=== PATIENT | female | born 1935 | race Caucasian/White ===

== ENCOUNTER 2016-12-26 13:00 | Outpatient (RCR) | payer MEDICARE, OTHER, SELFPAY ==
[2016-12-20 00:57] VITALS: BP 190/82; PULSE 58; RESP 20; TEMP 36.4
[2016-12-26 13:00] VITALS: RESP 18; TEMP 36.4
--- NOTE | 2016-12-26 13:52 | PCM.WC.HP ---
(1) Non-pressure chronic ulcer of other part of left lower leg with fat layer exposed Status: Acute Current Visit: Yes Code(s): L97.822 - NON-PRS CHRONIC ULCER OTH PRT L LOW LEG W FAT LAYER EXPOSED (2) Venous (peripheral) insufficiency Status: Chronic Current Visit: Yes Code(s): I87.2 - VENOUS INSUFFICIENCY (CHRONIC) (PERIPHERAL) (3) Peripheral vascular disease Status: Acute Current Visit: Yes Code(s): I73.9 - PERIPHERAL VASCULAR DISEASE, UNSPECIFIED (4) Type 2 diabetes mellitus with other circulatory complications Status: Acute Current Visit: Yes Code(s): E11.59 - TYPE 2 DIABETES MELLITUS WITH OTH CIRCULATORY COMPLICATIONS History of Present Illness Date of Service: 12/26/16 Chief Complaint: open sore left leg History of Wound: This 81-year-old female presents to the wound center given a history of previous ulcers of her lower extremities. She is a former patient of Dr. Gregory, and I am seeing her now since he left the wound center. 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 Vein harvesting was from the left leg. Since then she has had problems with swelling of the leg and recurring ulcers. The patient has diabetes, coronary artery disease, peripheral arterial disease, and venous insufficiency. The patient has had venous ulcers previously that were treated compression. The patient has compression stockings that are difficult for her to wear. She lives alone and she is unable to put them on easily. A blister on her anterior tibial region ruptured and she has had continued drainage from the anterior tibial ulcer. She has been having aquacel ag and loosely wrapped 3M 2-layer coban applied. Patient states her leg is stable. Has not had venous studies in over 3 years and has not had arterial studies in over 2 years. Has not seen a vascular surgeon. She does not give a history of fevers or chills, myalgias or arthralgias. She does not remember her A1c. She gives herself 3 injections of insulin daily. Past Medical History Past Medical History: Chronic Problems Venous (peripheral) insufficiency (Chronic) Diabetes type 2, controlled (Chronic) Ulcer of leg, chronic, left (Chronic) Surgical History: coronary bypass surgery, herniorrhaphy, hysterectomy, - - Bladder sling Allergies/Adverse Reactions: Allergies ibuprofen [From Motrin] Allergy (Verified 05/12/14 11:54) Other CONFUSION naproxen sodium [From Aleve] Allergy (Verified 05/12/14 11:54) Other Penicillins Allergy (Verified 05/12/14 11:54) Rash Sulfa (Sulfonamide Antibiotics) Allergy (Verified 05/12/14 11:54) Rash atorvastatin calcium [From Lipitor] Adverse Reaction (Verified 05/12/14 11:54) Other LEG ACHES Home Medications: Ambulatory Orders Medication Instructions Recorded Ferrous Fumarate [Iron] 55 mg PO DAILY 03/15/13 Lisinopril [Zestril] 40 mg PO DAILY 05/22/13 Aspirin [Aspirin, Baby] 81 mg PO DAILY@0800 05/12/14 Furosemide [Lasix] 40 mg PO DAILY PRN PRN 05/12/14 Gabapentin [Neurontin] 300 mg PO TID 05/12/14 Cholecalciferol (Vitamin D3) 1,000 unit PO DAILY 09/20/16 [Vitamin D3] Insulin Glargine,Hum.rec.anlog 14 unit SQ DAILY 09/20/16 [Toujeo Solostar] Insulin Lispro [Humalog] 4 unit SQ TID 09/20/16 Isosorbide Dinitrate 30 mg PO DAILY 09/20/16 Levothyroxine [Synthroid] 37.5 mcg PO DAILY 09/20/16 Metoprolol Tartrate 12.5 mg PO BID 09/20/16 Omeprazole [Prilosec] 20 mg PO DAILY 09/20/16 Ondansetron HCl [Zofran] 4 mg PO PRN PRN 09/20/16 Oxycodone HCl/Acetaminophen 1 each PO Q6H PRN PRN 09/20/16 [Oxycodon-Acetaminophen 7.5-325] Ropinirole HCl [Requip] 0.5 mg PO QHS 09/20/16 - Family History Maternal No pertinent history Paternal Cancer Lives: Alone Smoking Status: Never smoker Tobacco Use: Non-smoker Alcohol: Rare Drugs: None Review of Systems Constitutional: Denies: Chills, Fever, Weight Change Eyes: Denies: Pain, Vision Change HEENT: Denies: Difficulty Hearing, Difficulty Swallowing, Sinus Congestion Cardiovascular: Reports: Edema. Denies: Chest Pain, Palpitations Respiratory: Denies: Cough, Shortness of Breath Gastrointestinal: Denies: Diarrhea, Nausea, Vomiting Genitourinary: Denies: Dysuria, Hematuria Skin: Reports: Wounds - L jenkins Neurological: Denies: Numbness, Tingling Psychiatric: Denies: Anxiety, Depression Endocrine: Denies: Heat/ Cold Intolerance, Polydipsia, Polyuria Hematologic/ Lymphatic: Denies: Easy Bruising, Easy Bleeding - Physical Exam Vital Signs Temp Pulse Resp BP Pulse Ox 97.5 F 58 18 190/82 12/26/16 13:00 12/20/16 00:57 12/26/16 13:00 12/20/16 00:57 General: Alert, Oriented x3, Cooperative, No apparent distress Extremities: No Calf Tenderness, Diminished Peripheral Pulses, Edema Skin: Ulcer/ Wound - L jenkins with no erythema, no pus, no malodor, no warmth, no pain with palpation. No clinical signs of acute bacterial infection noted. See nurse's wound/edema assessment below. Wound Measurements and Assessment WC - Nurse 1 - General Ulcer Measurement Start: 12/26/16 13:00 Freq: Status: Active Activity Type Activity Date Activity User E-Sign Co-Sign Detail Recorded Client Recorded Date Recorded By Document 12/26/16 13:00 [facility] [id number] 12/26/16 13:12 [facility] 12/26/16 13:00 Wound Center Nurse 1 [Ulcer Assessment] 1. L medial jenkins -Combined with other wound No -Current Size (cm) - Length 1.1 -Current Size (cm) - Width 0.7 -Current Size (cm) - Depth 0.3 -Total Square Cm 0.77 -Photo Taken No -Epithelialization None Present -Tunneling No -Undermining/Tunneling No -Exudate Amt Small (1-33%) -Exudate Type Serosanguineous -Wound Margin Distinct, Outline Attached -Granulation Amt None Present (0 %) -Slough/Fibrin Yes -Necrosis Amt Large (67-100%) -Necrotic Tissue Type Adherent Slough -Structure Exposed N/A -Texture (Erika-wound Skin Appearance) Scarring -Moisture (Erika-wound Skin Appearance Dry/Scaly ) -Color (Erika-wound Skin Appearance) Hemosiderin Staining -Temperature (Erika-wound Skin No Abnormality Appearance) (Pt Warm) -Tenderness on Palpation (Erika-wound No Skin Appearance) -Ulcer Cleansing Rinsed/ Irrigated with Saline -Foul Odor after Cleansing No -Anesthetic Used 4% Lidocaine Solution [Edema Assessment] -Lower Limb Edema Present Yes -Left Calf (cm) 51.5 -Left Ankle (cm) 25 WC - Nurse 2 - General Ulcer CM Notes Start: 12/26/16 13:00 Freq: Status: Active Activity Type Activity Date Activity User E-Sign Co-Sign Detail Recorded Client Recorded Date Recorded By Document 12/26/16 13:40 MW [id number] 12/26/16 13:43 MW 12/26/16 13:40 Wound Center Nurse 2 [Procedure/Treatment] 1. L medial jenkins -Time 13:40 -Correct Patient Yes -Correct Side, Site, Position Yes -Correct Procedure Yes -Procedure Performed Yes -Type of Procedure Debridement -Clinical Debridement Subcutaneous -Post Debridement Size (cm) - Length 1.2 -Post Debridement Size (cm) - Width 0.7 -Post Debridement Size (cm) - Depth 0.3 -Total Square Cm 0.84 -Wound/Ulcer Outcome Not Healed -Ulcer Cleansing Rinsed/ Irrigated with Saline -Foul Odor after Cleansing No -Bioengineered Tissue No -Cetacaine [place] No -Bleeding Controlled with Pressure -Treatment Response Procedure Tolerated Well [See Physician Procedure note for Specifics] Pain Scale: 0-10 Numeric [Pain] -Is Patient Pain Free? Yes Neurological: Neuro grossly intact, Motor Exam 5/5 strength throughout, Muscle tone normal, Coordination normal, Gait narrow based and stable Psych/Mental Status: Alert and oriented to time, place, person, mood and affect - wnl Debridement Note Post-Debridement Measurements/Treatment WC - Nurse 2 - General Ulcer CM Notes Start: 12/26/16 13:00 Freq: Status: Active Activity Type Activity Date Activity User E-Sign Co-Sign Detail Recorded Client Recorded Date Recorded By Document 12/26/16 13:40 MW [id number] 12/26/16 13:43 MW 12/26/16 13:40 Wound Center Nurse 2 1. L medial jenkins -Time 13:40 -Correct Patient Yes -Correct Side, Site, Position Yes -Correct Procedure Yes -Procedure Performed Yes -Type of Procedure Debridement -Clinical Debridement Subcutaneous -Post Debridement Size (cm) - Length 1.2 -Post Debridement Size (cm) - Width 0.7 -Post Debridement Size (cm) - Depth 0.3 -Total Square Cm 0.84 -Wound/Ulcer Outcome Not Healed -Ulcer Cleansing Rinsed/ Irrigated with Saline -Foul Odor after Cleansing No -Bioengineered Tissue No -Cetacaine [place] No -Bleeding Controlled with Pressure -Treatment Response Procedure Tolerated Well Pain Scale: 0-10 Numeric Is Patient Pain Free? Yes Wound debrided: L jenkins Laterality: Left Wound Grade/Stage: full thickness VLU, lezama 1 diabetic ulcer of the left leg Type of Debridement: Excisional debridement Anesthesia Used: 4% Lidocaine Solution Depth: Down to and including healthy tissue, in the subcutaneous layer Percentage of wound debrided: 100 Instrument Used: 3mm curette Tissue Removed: fibrous slough Severity: Fat Layer Exposed Amount of bleeding with debridement: Mild Bleeding Controlled with: Pressure, Compression and gauze Patient tolerated procedure well Assessment/Plan Active Problems Non-pressure chronic ulcer of other part of left lower leg with fat layer exposed (Acute) Peripheral vascular disease (Acute) Type 2 diabetes mellitus with other circulatory complications (Acute) Venous (peripheral) insufficiency (Chronic) Assessment: see diagnoses Plan: RADIATION THERAPY TECHNOLOGIST exam. Stop 3M 2-layer coban. Start loosely wrapped unna boot. Add santyl today in clinic only. Repeat vascular testing, refer to vascular surgery as needed. Stop Aquacel silver, gauze, and loosely Wrapped 3M Coban to the left leg. Visiting nurses to change once on Sunday and she will return here on Sunday. Patient to elevate legs as much as possible above her heart, avoid idle sitting or standing, increase activity, lose weight, and take anti-inflammatories for pain. patient has severe degenerative arthritis and has inability to bend her knees. Patient cannot reach down to her legs. Recheck back in 1 week. Monitor for redness, pus, malodor, warmth, pain, increased edema as well as for N/V/F/C and call or go to the ED with these. Information entered by nursing staff reviewed.
--- NOTE | 2016-12-26 14:02 | HP.PCM_ITS ---
(1) Non-pressure chronic ulcer of other part of left lower leg with fat layer exposed Status: Acute Current Visit: Yes Code(s): L97.822 - NON-PRS CHRONIC ULCER OTH PRT L LOW LEG W FAT LAYER EXPOSED (2) Venous (peripheral) insufficiency Status: Chronic Current Visit: Yes Code(s): I87.2 - VENOUS INSUFFICIENCY ( CHRONIC) (PERIPHERAL) (3) Peripheral vascular disease Status: Acute Current Visit: Yes Code(s): I73.9 - PERIPHERAL VASCULAR DISEASE, UNSPECIFIED (4) Type 2 diabetes mellitus with other circulatory complications Status: Acute Current Visit: Yes Code(s): E11.59 - TYPE 2 DIABETES MELLITUS WITH OTH CIRCULATORY COMPLICATIONS History of Present Illness Date of Service: 12/26/16 Chief Complaint: open sore left leg History of Wound: This 81-year-old female presents to the wound center given a history of previous ulcers of her lower extremities. She is a former patient of Dr. Gregory, and I am seeing her now since he left the wound center. 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 Vein harvesting was from the left leg. Since then she has had problems with swelling of the leg and recurring ulcers. The patient has diabetes, coronary artery disease, peripheral arterial disease, and venous insufficiency. The patient has had venous ulcers previously that were treated compression. The patient has compression stockings that are difficult for her to wear. She lives alone and she is unable to put them on easily. A blister on her anterior tibial region ruptured and she has had continued drainage from the anterior tibial ulcer. She has been having aquacel ag and loosely wrapped 3M 2-layer coban applied. Patient states her leg is stable. Has not had venous studies in over 3 years and has not had arterial studies in over 2 years. Has not seen a vascular surgeon. She does not give a history of fevers or chills, myalgias or arthralgias. She does not remember her A1c. She gives herself 3 injections of insulin daily. Past Medical History Past Medical History: Chronic Problems Venous (peripheral) insufficiency (Chronic) Diabetes type 2, controlled (Chronic) Ulcer of leg, chronic, left (Chronic) Surgical History: coronary bypass surgery, herniorrhaphy, hysterectomy, - - Bladder sling Allergies/Adverse Reactions: Allergies ibuprofen [From Motrin] Allergy (Verified 05/12/14 11:54) Other CONFUSION naproxen sodium [From Aleve] Allergy (Verified 05/12/14 11:54) Other Penicillins Allergy (Verified 05/12/14 11:54) Rash Sulfa (Sulfonamide Antibiotics) Allergy (Verified 05/12/14 11:54) Rash atorvastatin calcium [From Lipitor] Adverse Reaction (Verified 05/12/14 11:54) Other LEG ACHES Home Medications: Ambulatory Orders Medication Instructions Recorded Ferrous Fumarate [Iron] 55 mg PO DAILY 03/15/13 Lisinopril [Zestril] 40 mg PO DAILY 05/22/13 Aspirin [Aspirin, Baby] 81 mg PO DAILY@0800 05/12/14 Furosemide [Lasix] 40 mg PO DAILY PRN PRN 05/12/14 Gabapentin [Neurontin] 300 mg PO TID 05/12/14 Cholecalciferol (Vitamin D3) 1,000 unit PO DAILY 09/20/16 [Vitamin D3] Insulin Glargine,Hum.rec.anlog 14 unit SQ DAILY 09/20/16 [Toujeo Solostar] Insulin Lispro [Humalog] 4 unit SQ TID 09/20/16 Isosorbide Dinitrate 30 mg PO DAILY 09/20/16 Levothyroxine [Synthroid] 37.5 mcg PO DAILY 09/20/16 Metoprolol Tartrate 12.5 mg PO BID 09/20/16 Omeprazole [Prilosec] 20 mg PO DAILY 09/20/16 Ondansetron HCl [Zofran] 4 mg PO PRN PRN 09/20/16 Oxycodone HCl/Acetaminophen 1 each PO Q6H PRN PRN 09/20/16 [Oxycodon-Acetaminophen 7.5-325] Ropinirole HCl [Requip] 0.5 mg PO QHS 09/20/16 - Family History Maternal No pertinent history Paternal Cancer Lives: Alone Smoking Status: Never smoker Tobacco Use: Non-smoker Alcohol: Rare Drugs: None Review of Systems Constitutional: Denies: Chills, Fever, Weight Change Eyes: Denies: Pain, Vision Change HEENT: Denies: Difficulty Hearing, Difficulty Swallowing, Sinus Congestion Cardiovascular: Reports: Edema. Denies: Chest Pain, Palpitations Respiratory: Denies: Cough, Shortness of Breath Gastrointestinal: Denies: Diarrhea, Nausea, Vomiting Genitourinary: Denies: Dysuria, Hematuria Skin: Reports: Wounds - L jenkins Neurological: Denies: Numbness, Tingling Psychiatric: Denies: Anxiety, Depression Endocrine: Denies: Heat/ Cold Intolerance, Polydipsia, Polyuria Hematologic/ Lymphatic: Denies: Easy Bruising, Easy Bleeding - Physical Exam Vital Signs Temp Pulse Resp BP Pulse Ox 97.5 F 58 18 190/82 12/26/16 13:00 12/20/16 00:57 12/26/16 13:00 12/20/16 00:57 General: Alert, Oriented x3, Cooperative, No apparent distress Extremities: No Calf Tenderness, Diminished Peripheral Pulses, Edema Skin: Ulcer/ Wound - L jenkins with no erythema, no pus, no malodor, no warmth, no pain with palpation. No clinical signs of acute bacterial infection noted. See nurse's wound/edema assessment below. Wound Measurements and Assessment WC - Nurse 1 - General Ulcer Measurement Start: 12/26/16 13:00 Freq: Status: Active Activity Type Activity Date Activity User E-Sign Co-Sign Detail Recorded Client Recorded Date Recorded By Document 12/26/16 13:00 [facility] [id number] 12/26/16 13:12 [facility] 12/26/16 13:00 Wound Center Nurse 1 [Ulcer Assessment] 1. L medial jenkins -Combined with other wound No -Current Size (cm) - Length 1.1 -Current Size (cm) - Width 0.7 -Current Size (cm) - Depth 0.3 -Total Square Cm 0.77 -Photo Taken No -Epithelialization None Present -Tunneling No -Undermining/Tunneling No -Exudate Amt Small (1-33%) -Exudate Type Serosanguineous -Wound Margin Distinct, Outline Attached -Granulation Amt None Present (0 %) -Slough/Fibrin Yes -Necrosis Amt Large (67-100%) -Necrotic Tissue Type Adherent Slough -Structure Exposed N/A -Texture (Erika-wound Skin Appearance) Scarring -Moisture (Erika-wound Skin Appearance Dry/Scaly ) -Color (Erika-wound Skin Appearance) Hemosiderin Staining -Temperature (Erika-wound Skin No Abnormality Appearance) (Pt Warm) -Tenderness on Palpation (Erika-wound No Skin Appearance) -Ulcer Cleansing Rinsed/ Irrigated with Saline -Foul Odor after Cleansing No -Anesthetic Used 4% Lidocaine Solution [Edema Assessment] -Lower Limb Edema Present Yes -Left Calf (cm) 51.5 -Left Ankle (cm) 25 WC - Nurse 2 - General Ulcer CM Notes Start: 12/26/16 13:00 Freq: Status: Active Activity Type Activity Date Activity User E-Sign Co-Sign Detail Recorded Client Recorded Date Recorded By Document 12/26/16 13:40 MW [id number] 12/26/16 13:43 MW 12/26/16 13:40 Wound Center Nurse 2 [Procedure/Treatment] 1. L medial jenkins -Time 13:40 -Correct Patient Yes -Correct Side, Site, Position Yes -Correct Procedure Yes -Procedure Performed Yes -Type of Procedure Debridement -Clinical Debridement Subcutaneous -Post Debridement Size (cm) - Length 1.2 -Post Debridement Size (cm) - Width 0.7 -Post Debridement Size (cm) - Depth 0.3 -Total Square Cm 0.84 -Wound/Ulcer Outcome Not Healed -Ulcer Cleansing Rinsed/ Irrigated with Saline -Foul Odor after Cleansing No -Bioengineered Tissue No -Cetacaine [place] No -Bleeding Controlled with Pressure -Treatment Response Procedure Tolerated Well [See Physician Procedure note for Specifics] Pain Scale: 0-10 Numeric [Pain] -Is Patient Pain Free? Yes Neurological: Neuro grossly intact, Motor Exam 5/5 strength throughout, Muscle tone normal, Coordination normal, Gait narrow based and stable Psych/Mental Status: Alert and oriented to time, place, person, mood and affect - wnl Debridement Note Post-Debridement Measurements/Treatment WC - Nurse 2 - General Ulcer CM Notes Start: 12/26/16 13:00 Freq: Status: Active Activity Type Activity Date Activity User E-Sign Co-Sign Detail Recorded Client Recorded Date Recorded By Document 12/26/16 13:40 MW [id number] 12/26/16 13:43 MW 12/26/16 13:40 Wound Center Nurse 2 1. L medial jenkins -Time 13:40 -Correct Patient Yes -Correct Side, Site, Position Yes -Correct Procedure Yes -Procedure Performed Yes -Type of Procedure Debridement -Clinical Debridement Subcutaneous -Post Debridement Size (cm) - Length 1.2 -Post Debridement Size (cm) - Width 0.7 -Post Debridement Size (cm) - Depth 0.3 -Total Square Cm 0.84 -Wound/Ulcer Outcome Not Healed -Ulcer Cleansing Rinsed/ Irrigated with Saline -Foul Odor after Cleansing No -Bioengineered Tissue No -Cetacaine [place] No -Bleeding Controlled with Pressure -Treatment Response Procedure Tolerated Well Pain Scale: 0-10 Numeric Is Patient Pain Free? Yes Wound debrided: L jenkins Laterality: Left Wound Grade/Stage: full thickness VLU, lezama 1 diabetic ulcer of the left leg Type of Debridement: Excisional debridement Anesthesia Used: 4% Lidocaine Solution Depth: Down to and including healthy tissue, in the subcutaneous layer Percentage of wound debrided: 100 Instrument Used: 3mm curette Tissue Removed: fibrous slough Severity: Fat Layer Exposed Amount of bleeding with debridement: Mild Bleeding Controlled with: Pressure, Compression and gauze Patient tolerated procedure well Assessment/Plan Active Problems Non-pressure chronic ulcer of other part of left lower leg with fat layer exposed (Acute) Peripheral vascular disease (Acute) Type 2 diabetes mellitus with other circulatory complications (Acute) Venous (peripheral) insufficiency (Chronic) Assessment: see diagnoses Plan: RECRUITER SPECIALIST exam. Stop 3M 2-layer coban. Start loosely wrapped unna boot. Add santyl today in clinic only. Repeat vascular testing, refer to vascular surgery as needed. Stop Aquacel silver, gauze, and loosely Wrapped 3M Coban to the left leg. Visiting nurses to change once on Sunday and she will return here on Sunday. Patient to elevate legs as much as possible above her heart, avoid idle sitting or standing, increase activity, lose weight, and take anti- inflammatories for pain. patient has severe degenerative arthritis and has inability to bend her knees. Patient cannot reach down to her legs. Recheck back in 1 week. Monitor for redness, pus, malodor, warmth, pain, increased edema as well as for N/V/F/C and call or go to the ED with these. Information entered by nursing staff reviewed.
--- NOTE | 2017-01-02 08:33 | VDLE_ITS ---
Reason For Study: Non-healing wound RIGHT LEFT CFV is compressible, spontaneous, phasic, CFV is compressible, spontaneous, phasic, competent and demonstrates normal competent, and demonstrates normal augmentation. augmentation. FV is compressible, spontaneous, phasic, FV is compressible, spontaneous, phasic, competent and demonstrates normal competent and demonstrates normal augmentation. augmentation. POP V is compressible, spontaneous, phasic, POP V is compressible, spontaneous, phasic, competent and demonstrates normal competent and demonstrates normal augmentation. augmentation. T/P Trunk is compressible. T/P Trunk is compressible. PTV is compressible. PTV is compressible. RT PerV is compressible. LT PerV is compressible. GSV absent GSV absent SSV competent. SSV competent. Procedure Exam performed portable in patient room. Technically difficult due to body habitus. [place] PER V not visualized. PTV visualized distally only. A preliminary report was called and/or faxed to [facility]. Interpretation Summary Deep veins of the lower extremities are bilaterally patent and compressible segmentally. There is no evidence of deep vein thrombosis on either side. Valvular competence appears intact within the proximal deep venous systems bilaterally. Great saphenous veins are absent bilaterally. Small saphenous veins are patent and competent bilaterally. Ordering Physician: Ez Meza Referring Physician: Vikram Hernandez M.D. Performed By: Lizz Mcmahon RVT
[2017-01-02 13:37] VITALS: BP 159/85; PULSE 64; RESP 20; TEMP 36.3
--- NOTE | 2017-01-02 14:58 | PCM.WC.PN ---
(1) Non-pressure chronic ulcer of other part of left lower leg with fat layer exposed Status: Acute Current Visit: Yes Code(s): L97.822 - NON-PRS CHRONIC ULCER OTH PRT L LOW LEG W FAT LAYER EXPOSED (2) Venous (peripheral) insufficiency Status: Chronic Current Visit: Yes Code(s): I87.2 - VENOUS INSUFFICIENCY (CHRONIC) (PERIPHERAL) (3) Peripheral vascular disease Status: Acute Current Visit: Yes Code(s): I73.9 - PERIPHERAL VASCULAR DISEASE, UNSPECIFIED (4) Type 2 diabetes mellitus with other circulatory complications Status: Acute Current Visit: Yes Code(s): E11.59 - TYPE 2 DIABETES MELLITUS WITH OTH CIRCULATORY COMPLICATIONS Type of Wound Date of Service: 01/02/17 Chief Complaint: open sore left leg History of Wound: This 81-year-old female presents to the wound center given a history of previous ulcers of her lower extremities. She is a former patient of Dr. Gregory, and I am seeing her now since he left the wound center. 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 Vein harvesting was from the left leg. Since then she has had problems with swelling of the leg and recurring ulcers. The patient has diabetes, coronary artery disease, peripheral arterial disease, and venous insufficiency. The patient has had venous ulcers previously that were treated compression. The patient has compression stockings that are difficult for her to wear. She lives alone and she is unable to put them on easily. A blister on her anterior tibial region ruptured and she has had continued drainage from the anterior tibial ulcer. She has been having aquacel ag and loosely wrapped 3M 2-layer coban applied. Patient states her leg is stable. Has not had venous studies in over 3 years and has not had arterial studies in over 2 years. Has not seen a vascular surgeon. She does not give a history of fevers or chills, myalgias or arthralgias. She does not remember her A1c. She gives herself 3 injections of insulin daily. 01/02--Did not tolerate unna boot--caused itching, switched back to 3M coban wrap loosely wrapped. ALEXIA done--0.73 on the L. Pt has lymphedema. Venous duplex reveals no reflux--but has had vein harvested for bypass surgery in the past. Denies N/V/F/C. Progress of Wound: patient presents for a recheck of her anterior tibial ulcer. Compression is through loosely wrapped 3M Coban. She had no adverse effects. Did not tolerate unna boot, and was switched back to a 3M wrap. Visiting nurses have now been coming to her home on a every other day to change dressings and compression. - Physical Exam Vital Signs Temp Pulse Resp BP Pulse Ox 97.3 F 64 20 159/85 01/02/17 13:37 01/02/17 13:37 01/02/17 13:37 01/02/17 13:37 General: Alert, Oriented x3, Cooperative, No apparent distress Extremities: Diminished Peripheral Pulses, Edema Skin: Ulcer/ Wound - L jenkins with no surrounding erythema, no calor, no TTP of wound or romy-wound area, no malodor, no pus. No clinical signs of acute bacterial infection noted. See wound/edema assessment below. Wound Measurements and Assessment WC - Nurse 1 - General Ulcer Measurement Start: 12/26/16 13:00 Freq: Status: Active Activity Type Activity Date Activity User E-Sign Co-Sign Detail Recorded Client Recorded Date Recorded By Document 01/02/17 13:37 [facility] [id number] 01/02/17 13:42 [facility] 01/02/17 13:37 Wound Center Nurse 1 [Ulcer Assessment] 1. L medial jenkins -Combined with other wound No -Current Size (cm) - Length 2.5 -Current Size (cm) - Width 1.5 -Current Size (cm) - Depth 0.2 -Total Square Cm 3.75 -Photo Taken No -Epithelialization None Present -Tunneling No -Undermining/Tunneling No -Exudate Amt Medium (34-66%) -Exudate Type Yellow/Green -Wound Margin Distinct, Outline Attached -Granulation Amt None Present (0 %) -Slough/Fibrin Yes -Necrosis Amt Large (67-100%) -Necrotic Tissue Type Adherent Slough -Structure Exposed N/A -Texture (Romy-wound Skin Appearance) Scarring -Moisture (Romy-wound Skin Appearance Maceration ) -Color (Romy-wound Skin Appearance) Hemosiderin Staining -Temperature (Romy-wound Skin No Abnormality Appearance) (Pt Warm) -Tenderness on Palpation (Romy-wound No Skin Appearance) -Ulcer Cleansing Rinsed/ Irrigated with Saline -Foul Odor after Cleansing No -Anesthetic Used 4% Lidocaine Solution [Edema Assessment] -Lower Limb Edema Present Yes -Left Calf (cm) 47 -Left Ankle (cm) 25.5 WC - Nurse 2 - General Ulcer CM Notes Start: 12/26/16 13:00 Freq: Status: Active Activity Type Activity Date Activity User E-Sign Co-Sign Detail Recorded Client Recorded Date Recorded By Document 01/02/17 14:23 MW [id number] 01/02/17 14:30 MW 01/02/17 14:23 Wound Center Nurse 2 [Procedure/Treatment] 1. L medial jenkins -Time 14:23 -Correct Patient Yes -Correct Side, Site, Position Yes -Correct Procedure Yes -Procedure Performed Yes -Type of Procedure Debridement -Clinical Debridement Subcutaneous -Post Debridement Size (cm) - Length 2.6 -Post Debridement Size (cm) - Width 1.5 -Post Debridement Size (cm) - Depth 0.2 -Total Square Cm 3.90 -Wound/Ulcer Outcome Not Healed -Ulcer Cleansing Rinsed/ Irrigated with Saline -Foul Odor after Cleansing No -Bioengineered Tissue No -Cetacaine [place] No -Bleeding Controlled with Pressure -Treatment Response Procedure Tolerated Well [See Physician Procedure note for Specifics] Pain Scale: 0-10 Numeric [Pain] -Is Patient Pain Free? Yes Debridement Note Post-Debridement Measurements/Treatment WC - Nurse 2 - General Ulcer CM Notes Start: 12/26/16 13:00 Freq: Status: Active Activity Type Activity Date Activity User E-Sign Co-Sign Detail Recorded Client Recorded Date Recorded By Document 01/02/17 14:23 MW [id number] 01/02/17 14:30 MW 01/02/17 14:23 Wound Center Nurse 2 1. L medial jenkins -Time 14:23 -Correct Patient Yes -Correct Side, Site, Position Yes -Correct Procedure Yes -Procedure Performed Yes -Type of Procedure Debridement -Clinical Debridement Subcutaneous -Post Debridement Size (cm) - Length 2.6 -Post Debridement Size (cm) - Width 1.5 -Post Debridement Size (cm) - Depth 0.2 -Total Square Cm 3.90 -Wound/Ulcer Outcome Not Healed -Ulcer Cleansing Rinsed/ Irrigated with Saline -Foul Odor after Cleansing No -Bioengineered Tissue No -Cetacaine [place] No -Bleeding Controlled with Pressure -Treatment Response Procedure Tolerated Well Pain Scale: 0-10 Numeric Is Patient Pain Free? Yes Wound debrided: L jenkins Laterality: Left Wound Grade/Stage: full thickness Type of Debridement: Excisional debridement Anesthesia Used: 4% Lidocaine Solution Depth: Down to and including healthy tissue, in the subcutaneous layer Percentage of wound debrided: 100 Instrument Used: 3mm curette Tissue Removed: fibrous slough Severity: Fat Layer Exposed Amount of bleeding with debridement: Mild Bleeding Controlled with: Pressure, Compression and gauze Patient tolerated procedure well Assessment/Plan Active Problems Non-pressure chronic ulcer of other part of left lower leg with fat layer exposed (Acute) Peripheral vascular disease (Acute) Type 2 diabetes mellitus with other circulatory complications (Acute) Venous (peripheral) insufficiency (Chronic) Assessment: see diagnoses Plan: SQ/excisional debridment L leg ulcer as above. Add santyl today in clinic only. Referral to Dr. Granda given lymphedema with dimished arterial blood flow. Stop 3M coban, start surepress. Use fibracol plus. Patient to elevate legs as much as possible above her heart, avoid idle sitting or standing, increase activity, lose weight, and take anti-inflammatories for pain. patient has severe degenerative arthritis and has inability to bend her knees. Patient cannot reach down to her legs. Recheck back in 1 week. Monitor for redness, pus, malodor, warmth, pain, increased edema as well as for N/V/F/C and call or go to the ED with these. Information entered by nursing staff reviewed.
--- NOTE | 2017-01-02 15:03 | PN.PCM_ITS ---
(1) Non-pressure chronic ulcer of other part of left lower leg with fat layer exposed Status: Acute Current Visit: Yes Code(s): L97.822 - NON-PRS CHRONIC ULCER OTH PRT L LOW LEG W FAT LAYER EXPOSED (2) Venous (peripheral) insufficiency Status: Chronic Current Visit: Yes Code(s): I87.2 - VENOUS INSUFFICIENCY ( CHRONIC) (PERIPHERAL) (3) Peripheral vascular disease Status: Acute Current Visit: Yes Code(s): I73.9 - PERIPHERAL VASCULAR DISEASE, UNSPECIFIED (4) Type 2 diabetes mellitus with other circulatory complications Status: Acute Current Visit: Yes Code(s): E11.59 - TYPE 2 DIABETES MELLITUS WITH OTH CIRCULATORY COMPLICATIONS Type of Wound Date of Service: 01/02/17 Chief Complaint: open sore left leg History of Wound: This 81-year-old female presents to the wound center given a history of previous ulcers of her lower extremities. She is a former patient of Dr. Gregory, and I am seeing her now since he left the wound center. 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 Vein harvesting was from the left leg. Since then she has had problems with swelling of the leg and recurring ulcers. The patient has diabetes, coronary artery disease, peripheral arterial disease, and venous insufficiency. The patient has had venous ulcers previously that were treated compression. The patient has compression stockings that are difficult for her to wear. She lives alone and she is unable to put them on easily. A blister on her anterior tibial region ruptured and she has had continued drainage from the anterior tibial ulcer. She has been having aquacel ag and loosely wrapped 3M 2-layer coban applied. Patient states her leg is stable. Has not had venous studies in over 3 years and has not had arterial studies in over 2 years. Has not seen a vascular surgeon. She does not give a history of fevers or chills, myalgias or arthralgias. She does not remember her A1c. She gives herself 3 injections of insulin daily. 01/02--Did not tolerate unna boot-- caused itching, switched back to 3M coban wrap loosely wrapped. ALEXIA done--0.73 on the L. Pt has lymphedema. Venous duplex reveals no reflux--but has had vein harvested for bypass surgery in the past. Denies N/V/F/C. Progress of Wound: patient presents for a recheck of her anterior tibial ulcer. Compression is through loosely wrapped 3M Coban. She had no adverse effects. Did not tolerate unna boot, and was switched back to a 3M wrap. Visiting nurses have now been coming to her home on a every other day to change dressings and compression. - Physical Exam Vital Signs Temp Pulse Resp BP Pulse Ox 97.3 F 64 20 159/85 01/02/17 13:37 01/02/17 13:37 01/02/17 13:37 01/02/17 13:37 General: Alert, Oriented x3, Cooperative, No apparent distress Extremities: Diminished Peripheral Pulses, Edema Skin: Ulcer/ Wound - L jenkins with no surrounding erythema, no calor, no TTP of wound or romy-wound area, no malodor, no pus. No clinical signs of acute bacterial infection noted. See wound/edema assessment below. Wound Measurements and Assessment WC - Nurse 1 - General Ulcer Measurement Start: 12/26/16 13:00 Freq: Status: Active Activity Type Activity Date Activity User E-Sign Co-Sign Detail Recorded Client Recorded Date Recorded By Document 01/02/17 13:37 [facility] [id number] 01/02/17 13:42 [facility] 01/02/17 13:37 Wound Center Nurse 1 [Ulcer Assessment] 1. L medial jenkins -Combined with other wound No -Current Size (cm) - Length 2.5 -Current Size (cm) - Width 1.5 -Current Size (cm) - Depth 0.2 -Total Square Cm 3.75 -Photo Taken No -Epithelialization None Present -Tunneling No -Undermining/Tunneling No -Exudate Amt Medium (34-66%) -Exudate Type Yellow/Green -Wound Margin Distinct, Outline Attached -Granulation Amt None Present (0 %) -Slough/Fibrin Yes -Necrosis Amt Large (67-100%) -Necrotic Tissue Type Adherent Slough -Structure Exposed N/A -Texture (Romy-wound Skin Appearance) Scarring -Moisture (Romy-wound Skin Appearance Maceration ) -Color (Romy-wound Skin Appearance) Hemosiderin Staining -Temperature (Romy-wound Skin No Abnormality Appearance) (Pt Warm) -Tenderness on Palpation (Romy-wound No Skin Appearance) -Ulcer Cleansing Rinsed/ Irrigated with Saline -Foul Odor after Cleansing No -Anesthetic Used 4% Lidocaine Solution [Edema Assessment] -Lower Limb Edema Present Yes -Left Calf (cm) 47 -Left Ankle (cm) 25.5 WC - Nurse 2 - General Ulcer CM Notes Start: 12/26/16 13:00 Freq: Status: Active Activity Type Activity Date Activity User E-Sign Co-Sign Detail Recorded Client Recorded Date Recorded By Document 01/02/17 14:23 MW [id number] 01/02/17 14:30 MW 01/02/17 14:23 Wound Center Nurse 2 [Procedure/Treatment] 1. L medial jenkins -Time 14:23 -Correct Patient Yes -Correct Side, Site, Position Yes -Correct Procedure Yes -Procedure Performed Yes -Type of Procedure Debridement -Clinical Debridement Subcutaneous -Post Debridement Size (cm) - Length 2.6 -Post Debridement Size (cm) - Width 1.5 -Post Debridement Size (cm) - Depth 0.2 -Total Square Cm 3.90 -Wound/Ulcer Outcome Not Healed -Ulcer Cleansing Rinsed/ Irrigated with Saline -Foul Odor after Cleansing No -Bioengineered Tissue No -Cetacaine [place] No -Bleeding Controlled with Pressure -Treatment Response Procedure Tolerated Well [See Physician Procedure note for Specifics] Pain Scale: 0-10 Numeric [Pain] -Is Patient Pain Free? Yes Debridement Note Post-Debridement Measurements/Treatment WC - Nurse 2 - General Ulcer CM Notes Start: 12/26/16 13:00 Freq: Status: Active Activity Type Activity Date Activity User E-Sign Co-Sign Detail Recorded Client Recorded Date Recorded By Document 01/02/17 14:23 MW [id number] 01/02/17 14:30 MW 01/02/17 14:23 Wound Center Nurse 2 1. L medial jenkins -Time 14:23 -Correct Patient Yes -Correct Side, Site, Position Yes -Correct Procedure Yes -Procedure Performed Yes -Type of Procedure Debridement -Clinical Debridement Subcutaneous -Post Debridement Size (cm) - Length 2.6 -Post Debridement Size (cm) - Width 1.5 -Post Debridement Size (cm) - Depth 0.2 -Total Square Cm 3.90 -Wound/Ulcer Outcome Not Healed -Ulcer Cleansing Rinsed/ Irrigated with Saline -Foul Odor after Cleansing No -Bioengineered Tissue No -Cetacaine [place] No -Bleeding Controlled with Pressure -Treatment Response Procedure Tolerated Well Pain Scale: 0-10 Numeric Is Patient Pain Free? Yes Wound debrided: L jenkins Laterality: Left Wound Grade/Stage: full thickness Type of Debridement: Excisional debridement Anesthesia Used: 4% Lidocaine Solution Depth: Down to and including healthy tissue, in the subcutaneous layer Percentage of wound debrided: 100 Instrument Used: 3mm curette Tissue Removed: fibrous slough Severity: Fat Layer Exposed Amount of bleeding with debridement: Mild Bleeding Controlled with: Pressure, Compression and gauze Patient tolerated procedure well Assessment/Plan Active Problems Non-pressure chronic ulcer of other part of left lower leg with fat layer exposed (Acute) Peripheral vascular disease (Acute) Type 2 diabetes mellitus with other circulatory complications (Acute) Venous (peripheral) insufficiency (Chronic) Assessment: see diagnoses Plan: SQ/excisional debridment L leg ulcer as above. Add santyl today in clinic only. Referral to Dr. Granda given lymphedema with dimished arterial blood flow. Stop 3M coban, start surepress. Use fibracol plus. Patient to elevate legs as much as possible above her heart, avoid idle sitting or standing , increase activity, lose weight, and take anti-inflammatories for pain. patient has severe degenerative arthritis and has inability to bend her knees. Patient cannot reach down to her legs. Recheck back in 1 week. Monitor for redness, pus, malodor, warmth, pain, increased edema as well as for N/V/F/C and call or go to the ED with these. Information entered by nursing staff reviewed.
--- NOTE | 2017-01-03 18:10 | LEAS ---
Arterial Study - Arterial Study Arterial Study: This is a 81-year-old female with a history of diabetes mellitus, coronary artery disease, and peripheral arterial occlusive disease. She presents with chronic nonhealing wounds to the lower extremities. With a history of peripheral arterial occlusive disease, she was brought to the noninvasive vascular laboratory at this time for the purpose of bilateral noninvasive lower extremity arterial assessment. Doppler signal assessment was used to evaluate the pulses at ankle level bilaterally. The right posterior tibial pulse was monophasic. The right dorsalis pedis pulse was biphasic. The left posterior tibial pulse was monophasic. The left dorsalis pedis pulse was biphasic. Segmental limb pressures were obtained bilaterally. The right ankle pressure, as determined by posterior tibial pulse, was measured at 108 mmHg. The right ankle pressure, as determined by dorsalis pedis pulse, was measured at 157 mmHg. The right digital pressure was measured at 87 mmHg. The left ankle pressure, as determined by posterior tibial pulse, was measured at 149 mmHg. The left ankle pressure, as determined by dorsalis pedis pulse, was measured at 142 mmHg. The left digital pressure was measured at 60 mmHg. Pulse-volume recordings were obtained bilaterally and segmentally. Waveform amplitudes appeared to be diminished distally. Resting ankle-brachial indices were calculated bilaterally. The resting right ankle-brachial index was calculated to be 0.77. The resting left ankle-brachial index was calculated to be 0.73. Digital-brachial indices were calculated bilaterally. The right digital-brachial index was calculated to be 0.43. The left digital-brachial index was calculated to be 0.29. Impression: Based upon the findings of this resting noninvasive lower extremity arterial study, there is evidence of moderate to severe arterial occlusive disease in the lower extremities bilaterally. Monophasic and biphasic waveforms are noted at ankle level bilaterally. Resting ankle-brachial indices are moderately diminished bilaterally. The right digital-brachial index is moderately diminished. The left digital-brachial index is severely diminished. Findings suggest moderate arterial occlusive disease in the right lower extremity, with moderate impairment of arterial flow at ankle level on the left, and additional distal, small-vessel arterial occlusive disease in the left lower extremity, resulting in severe impairment of arterial flow at digital level in the left lower extremity.
--- NOTE | 2017-01-03 18:14 | LEAS_ITS ---
Arterial Study - Arterial Study Arterial Study: This is a 81-year-old female with a history of diabetes mellitus, coronary artery disease, and peripheral arterial occlusive disease. She presents with chronic nonhealing wounds to the lower extremities. With a history of peripheral arterial occlusive disease, she was brought to the noninvasive vascular laboratory at this time for the purpose of bilateral noninvasive lower extremity arterial assessment. Doppler signal assessment was used to evaluate the pulses at ankle level bilaterally. The right posterior tibial pulse was monophasic. The right dorsalis pedis pulse was biphasic. The left posterior tibial pulse was monophasic. The left dorsalis pedis pulse was biphasic. Segmental limb pressures were obtained bilaterally. The right ankle pressure, as determined by posterior tibial pulse, was measured at 108 mmHg. The right ankle pressure, as determined by dorsalis pedis pulse, was measured at 157 mmHg. The right digital pressure was measured at 87 mmHg. The left ankle pressure, as determined by posterior tibial pulse, was measured at 149 mmHg. The left ankle pressure, as determined by dorsalis pedis pulse, was measured at 142 mmHg. The left digital pressure was measured at 60 mmHg. Pulse-volume recordings were obtained bilaterally and segmentally. Waveform amplitudes appeared to be diminished distally. Resting ankle-brachial indices were calculated bilaterally. The resting right ankle-brachial index was calculated to be 0.77. The resting left ankle- brachial index was calculated to be 0.73. Digital-brachial indices were calculated bilaterally. The right digital- brachial index was calculated to be 0.43. The left digital-brachial index was calculated to be 0.29. Impression: Based upon the findings of this resting noninvasive lower extremity arterial study, there is evidence of moderate to severe arterial occlusive disease in the lower extremities bilaterally. Monophasic and biphasic waveforms are noted at ankle level bilaterally. Resting ankle-brachial indices are moderately diminished bilaterally. The right digital-brachial index is moderately diminished. The left digital-brachial index is severely diminished. Findings suggest moderate arterial occlusive disease in the right lower extremity, with moderate impairment of arterial flow at ankle level on the left , and additional distal, small-vessel arterial occlusive disease in the left lower extremity, resulting in severe impairment of arterial flow at digital level in the left lower extremity.
[2017-01-16 12:32] VITALS: RESP 16; TEMP 36.6
--- NOTE | 2017-01-16 14:49 | PN.PCM_ITS ---
(1) Non-pressure chronic ulcer of other part of left lower leg with fat layer exposed Status: Acute Current Visit: Yes Code(s): L97.822 - NON-PRS CHRONIC ULCER OTH PRT L LOW LEG W FAT LAYER EXPOSED (2) Venous (peripheral) insufficiency Status: Chronic Current Visit: Yes Code(s): I87.2 - VENOUS INSUFFICIENCY ( CHRONIC) (PERIPHERAL) (3) Peripheral vascular disease Status: Acute Current Visit: Yes Code(s): I73.9 - PERIPHERAL VASCULAR DISEASE, UNSPECIFIED (4) Type 2 diabetes mellitus with other circulatory complications Status: Acute Current Visit: Yes Code(s): E11.59 - TYPE 2 DIABETES MELLITUS WITH OTH CIRCULATORY COMPLICATIONS (5) Edema extremities Status: Acute Current Visit: Yes Code(s): R60.0 - LOCALIZED EDEMA (6) Pain in left lower leg Status: Acute Current Visit: Yes Code(s): M79.662 - PAIN IN LEFT LOWER LEG Type of Wound Date of Service: 01/16/17 Chief Complaint: open sore left leg History of Wound: This 81-year-old female presents to the wound center given a history of previous ulcers of her lower extremities. She is a former patient of Dr. Conway's, and I am seeing her now since he left the wound center. 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 Vein harvesting was from the left leg. Since then she has had problems with swelling of the leg and recurring ulcers. The patient has diabetes, coronary artery disease, peripheral arterial disease, and venous insufficiency. The patient has had venous ulcers previously that were treated compression. The patient has compression stockings that are difficult for her to wear. She lives alone and she is unable to put them on easily. A blister on her anterior tibial region ruptured and she has had continued drainage from the anterior tibial ulcer. She has been having aquacel ag and loosely wrapped 3M 2-layer coban applied. Patient states her leg is stable. Has not had venous studies in over 3 years and has not had arterial studies in over 2 years. Has not seen a vascular surgeon. She does not give a history of fevers or chills, myalgias or arthralgias. She does not remember her A1c. She gives herself 3 injections of insulin daily. 01/02--Did not tolerate unna boot-- caused itching, switched back to 3M coban wrap loosely wrapped. ALEXIA done--0.73 on the L. Pt has lymphedema. Venous duplex reveals no reflux--but has had vein harvested for bypass surgery in the past. Denies N/V/F/C. 01/16--Pt complains of L calf pain today. Has appt to see Dr. Granda tomorrow. Will send her to get venous duplex given edema, pain L leg. Has had fibracol plus applied every other day to the L leg wounds. Has superficial areas draining clear fluid from L calf. Progress of Wound: patient presents for a recheck of her anterior tibial ulcer. Compression is with Surepress. She had no adverse effects. Did not tolerate unna boot. Visiting nurses have now been coming to her home on a every other day to change dressings and compression. - Physical Exam Vital Signs Temp Pulse Resp BP Pulse Ox 98 F 64 16 159/85 01/16/17 12:32 01/02/17 13:37 01/16/17 12:32 01/02/17 13:37 General: Alert, Oriented x3, Cooperative, No apparent distress Extremities: Edema, Tenderness - L calf Skin: Ulcer/ Wound - L jenkins and L calf with no erythema, no TTP, no calor, no malodor, no pus, no clinical signs of acute bacterial infection noted. See nurse's wound assessment. Wound Measurements and Assessment WC - Nurse 1 - General Ulcer Measurement Start: 12/26/16 13:00 Freq: Status: Active Activity Type Activity Date Activity User E-Sign Co-Sign Detail Recorded Client Recorded Date Recorded By Document 01/16/17 12:32 [facility] [id number] 01/16/17 12:51 [facility] 01/16/17 12:32 Wound Center Nurse 1 [Ulcer Assessment] #4- LT CALF CLUSTER -Combined with other wound No -Current Size (cm) - Length 8.8 -Current Size (cm) - Width 7.8 -Current Size (cm) - Depth 0.1 -Total Square Cm 68.64 -Date of Last Picture (Recall this 01/16/17 field) -Photo Taken Yes -Epithelialization None Present -Tunneling No -Undermining/Tunneling No -Exudate Amt Large (67-100%) -Exudate Type Serosanguineous -Wound Margin Distinct, Outline Attached -Granulation Amt Medium (34-66%) -Granulation Quality Red -Slough/Fibrin Yes -Necrosis Amt Medium (34-66%) -Necrotic Tissue Type Adherent Slough -Structure Exposed None/Limited to Skin Breakdown -Texture (Erika-wound Skin Appearance) Scarring -Moisture (Erika-wound Skin Appearance Maceration ) -Color (Erika-wound Skin Appearance) Hemosiderin Staining -Temperature (Erika-wound Skin No Abnormality Appearance) (Pt Warm) -Tenderness on Palpation (Erika-wound Yes Skin Appearance) -Ulcer Cleansing Rinsed/ Irrigated with Saline -Foul Odor after Cleansing No -Anesthetic Used 4% Lidocaine Solution 1. L medial jenkins -Combined with other wound No -Current Size (cm) - Length 2.6 -Current Size (cm) - Width 1.8 -Current Size (cm) - Depth 0.4 -Total Square Cm 4.68 -Date of Last Picture (Recall this 01/16/17 field) -Photo Taken Yes -Epithelialization None Present -Tunneling No -Undermining/Tunneling No -Exudate Amt Large (67-100%) -Exudate Type Serosanguineous -Wound Margin Distinct, Outline Attached -Granulation Amt None Present (0 %) -Slough/Fibrin Yes -Necrosis Amt Large (67-100%) -Necrotic Tissue Type Adherent Slough -Structure Exposed N/A -Texture (Erika-wound Skin Appearance) Scarring -Moisture (Erika-wound Skin Appearance Maceration ) -Color (Erika-wound Skin Appearance) Hemosiderin Staining -Temperature (Erika-wound Skin No Abnormality Appearance) (Pt Warm) -Tenderness on Palpation (Erika-wound Yes Skin Appearance) -Ulcer Cleansing Rinsed/ Irrigated with Saline -Foul Odor after Cleansing No -Anesthetic Used 5% Lidocaine Gel [Edema Assessment] -Lower Limb Edema Present Yes -Left Calf (cm) 50.5 -Left Ankle (cm) 25.7 WC - Nurse 2 - General Ulcer CM Notes Start: 12/26/16 13:00 Freq: Status: Active Activity Type Activity Date Activity User E-Sign Co-Sign Detail Recorded Client Recorded Date Recorded By Document 01/16/17 13:18 MW [id number] 01/16/17 13:29 MW 01/16/17 13:18 Wound Center Nurse 2 [Procedure/Treatment] #4- LT CALF CLUSTER -Time 13:19 -Correct Patient Yes -Correct Side, Site, Position Yes -Correct Procedure Yes -Procedure Performed No -Post Debridement Size (cm) - Length 8.8 -Post Debridement Size (cm) - Width 7.8 -Post Debridement Size (cm) - Depth 0.1 -Total Square Cm 68.64 -Wound/Ulcer Outcome Not Healed -Ulcer Cleansing Rinsed/ Irrigated with Saline -Foul Odor after Cleansing No -Bioengineered Tissue No -Cetacaine [place] No -Bleeding Controlled with Pressure -Treatment Response Procedure Tolerated Well 1. L medial jenkins -Time 13:19 -Correct Patient Yes -Correct Side, Site, Position Yes -Correct Procedure Yes -Procedure Performed Yes -Type of Procedure Debridement -Clinical Debridement Subcutaneous -Post Debridement Size (cm) - Length 2.7 -Post Debridement Size (cm) - Width 1.9 -Post Debridement Size (cm) - Depth 0.2 -Total Square Cm 5.13 -Wound/Ulcer Outcome Not Healed -Ulcer Cleansing Rinsed/ Irrigated with Saline -Foul Odor after Cleansing No -Bioengineered Tissue No -Cetacaine [place] No -Bleeding Controlled with Pressure -Treatment Response Procedure Tolerated Well [See Physician Procedure note for Specifics] Pain Scale: 0-10 Numeric [Pain] -Is Patient Pain Free? Yes Debridement Note Post-Debridement Measurements/Treatment WC - Nurse 2 - General Ulcer CM Notes Start: 12/26/16 13:00 Freq: Status: Active Activity Type Activity Date Activity User E-Sign Co-Sign Detail Recorded Client Recorded Date Recorded By Document 01/16/17 13:18 MW [id number] 01/16/17 13:29 MW 01/16/17 13:18 Wound Center Nurse 2 #4- LT CALF CLUSTER -Time 13:19 -Correct Patient Yes -Correct Side, Site, Position Yes -Correct Procedure Yes -Procedure Performed No -Post Debridement Size (cm) - Length 8.8 -Post Debridement Size (cm) - Width 7.8 -Post Debridement Size (cm) - Depth 0.1 -Total Square Cm 68.64 -Wound/Ulcer Outcome Not Healed -Ulcer Cleansing Rinsed/ Irrigated with Saline -Foul Odor after Cleansing No -Bioengineered Tissue No -Cetacaine [place] No -Bleeding Controlled with Pressure -Treatment Response Procedure Tolerated Well 1. L medial jenkins -Time 13:19 -Correct Patient Yes -Correct Side, Site, Position Yes -Correct Procedure Yes -Procedure Performed Yes -Type of Procedure Debridement -Clinical Debridement Subcutaneous -Post Debridement Size (cm) - Length 2.7 -Post Debridement Size (cm) - Width 1.9 -Post Debridement Size (cm) - Depth 0.2 -Total Square Cm 5.13 -Wound/Ulcer Outcome Not Healed -Ulcer Cleansing Rinsed/ Irrigated with Saline -Foul Odor after Cleansing No -Bioengineered Tissue No -Cetacaine [place] No -Bleeding Controlled with Pressure -Treatment Response Procedure Tolerated Well Pain Scale: 0-10 Numeric Is Patient Pain Free? Yes Wound debrided: L jenkins Laterality: Left Wound Grade/Stage: full thickness Type of Debridement: Excisional debridement Anesthesia Used: 4% Lidocaine Solution Depth: Down to and including healthy tissue, in the subcutaneous layer Percentage of wound debrided: 100 Instrument Used: 5mm curette Tissue Removed: fibrous slough Severity: Fat Layer Exposed Amount of bleeding with debridement: Mild Bleeding Controlled with: Pressure, Compression and gauze Patient tolerated procedure well Assessment/Plan Active Problems Edema extremities (Acute) Non-pressure chronic ulcer of other part of left lower leg with fat layer exposed (Acute) Pain in left lower leg (Acute) Peripheral vascular disease (Acute) Type 2 diabetes mellitus with other circulatory complications (Acute) Venous (peripheral) insufficiency (Chronic) Assessment: see diagnoses Plan: SQ/excisional debridment L leg ulcer as above. Referral to Dr. Granda given lymphedema with dimished arterial blood flow. Seeing him tomorrow. Go to the hospital for STAT venous duplex to assess for DVT LLE given edema, pain L calf. Restart 3M coban. Use fibracol plus. Apply to new superficial areas draining L calf today. Patient to elevate legs as much as possible above her heart, avoid idle sitting or standing, increase activity, lose weight, and take anti-inflammatories for pain. Pt states she can only take aspirin. Patient has severe degenerative arthritis and has inability to bend her knees. Patient cannot reach down to her legs. Recheck back in 1 week. Monitor for redness, pus, malodor, warmth, pain, increased edema as well as for N/V/F/C and call or go to the ED with these. Information entered by nursing staff reviewed.
== END 2017-01-18 23:59 ==
LOC: WC 01-02 09:00
PROVIDERS: Family Provider Family Medicine; PCP Family Medicine; Visit Provider Podiatrist Foot & Ankle Surgery
DX: E11.622 Type 2 diabetes mellitus with other skin ulcer (principal); L97.822 Non-pressure chronic ulcer of other part of left lower leg with fat layer exposed; I87.2 Venous insufficiency (chronic) (peripheral); E11.59 Type 2 diabetes mellitus with other circulatory complications; Z95.1 Presence of aortocoronary bypass graft; I25.10 Atherosclerotic heart disease of native coronary artery without angina pectoris; M19.90 Unspecified osteoarthritis, unspecified site; I89.0 Lymphedema, not elsewhere classified; I77.9 Disorder of arteries and arterioles, unspecified; R09.89 Other specified symptoms and signs involving the circulatory and respiratory systems; R60.0 Localized edema; M79.662 Pain in left lower leg
CPT/HCPCS: 11042; 29580; 29581; 93923; 93970; 93971

== ENCOUNTER 2017-01-30 15:00 | Outpatient (RCR) | payer MEDICARE, OTHER, SELFPAY ==
[2017-01-21 00:38] VITALS: BP 159/85; PULSE 64; RESP 16; TEMP 36.6
[2017-01-23 14:22] VITALS: BP 146/76; PULSE 98; RESP 16; TEMP 37
--- NOTE | 2017-01-23 16:02 | PCM.WC.PN ---
(1) Non-pressure chronic ulcer of other part of left lower leg with fat layer exposed Status: Acute Current Visit: Yes Code(s): L97.822 - Non-pressure chronic ulcer of other part of left lower leg with fat layer exposed (2) Lymphedema Status: Acute Current Visit: Yes Code(s): I89.0 - Lymphedema, not elsewhere classified (3) Type 2 diabetes mellitus with other circulatory complications Status: Acute Current Visit: No Code(s): E11.59 - Type 2 diabetes mellitus with other circulatory complications (4) Type 2 diabetes mellitus with diabetic peripheral angiopathy without gangrene Status: Acute Current Visit: Yes Code(s): E11.51 - Type 2 diabetes mellitus with diabetic peripheral angiopathy without gangrene Type of Wound Date of Service: 01/23/17 Chief Complaint: open sore left leg History of Wound: This 81-year-old female presents to the wound center given a history of previous ulcers of her lower extremities. She is a former patient of Dr. Conway's, and I am seeing her now since he left the wound center. 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 Vein harvesting was from the left leg. Since then she has had problems with swelling of the leg and recurring ulcers. The patient has diabetes, coronary artery disease, peripheral arterial disease, and venous insufficiency. The patient has had venous ulcers previously that were treated compression. The patient has compression stockings that are difficult for her to wear. She lives alone and she is unable to put them on easily. A blister on her anterior tibial region ruptured and she has had continued drainage from the anterior tibial ulcer. She has been having aquacel ag and loosely wrapped 3M 2-layer coban applied. Patient states her leg is stable. Has not had venous studies in over 3 years and has not had arterial studies in over 2 years. Has not seen a vascular surgeon. She does not give a history of fevers or chills, myalgias or arthralgias. She does not remember her A1c. She gives herself 3 injections of insulin daily. 01/02--Did not tolerate unna boot--caused itching, switched back to 3M coban wrap loosely wrapped. ALEXIA done--0.73 on the L. Pt has lymphedema. Venous duplex reveals no reflux--but has had vein harvested for bypass surgery in the past. Denies N/V/F/C. 01/16--Pt complains of L calf pain today. Has appt to see Dr. Granda tomorrow. Will send her to get venous duplex given edema, pain L leg. Has had fibracol plus applied every other day to the L leg wounds. Has superficial areas draining clear fluid from L calf. 01/23--L leg venous duplex (stat) negative for DVT last week. Pt saw Dr. Granda, plan for additional testing in 2 weeks, then likely angiogram. Dr. Granda recommended considering edema pumps as well. Pt complains of L leg pain from wounds. Will switch from ABDs to Sorbian Sachet for absorption of a large amount of drainage. In addition, will stop fibracol plus and switch to aquacel ag today. Progress of Wound: patient presents for a recheck of her left leg. Compression is with loosely-wrapped 3M 2-layer coban. She had no adverse effects except significant amount of clear drainage. Visiting nurses have now been coming to her home on a every other day to change dressings and compression. - Physical Exam Vital Signs Temp Pulse Resp BP 98.6 F 98 16 146/76 H 01/23/17 14:22 01/23/17 14:22 01/23/17 14:22 01/23/17 14:22 General: Alert, Oriented x3, Cooperative, No apparent distress Extremities: Edema Skin: Ulcer/ Wound - L calf, L jenkins with no erythema, no pus, no malodor, no increased warmth, no TTP. No clinical signs of acute bacterial infection noted. Please see nurse's wound assessment. Wound Measurements and Assessment SREE - Nurse 1 - General Ulcer Measurement Start: 01/23/17 00:44 Freq: Status: Active Protocol: Activity Type Activity Date Activity User E-Sign Co-Sign Detail Recorded Client Recorded Date Recorded By Document 01/23/17 14:22 [facility] [id number] 01/23/17 14:33 [facility] 01/23/17 14:22 Wound Center Nurse 1 [Ulcer Assessment Protocol: WC.WD.LOC] #4- LT CALF CLUSTER -Combined with other wound No -Current Size (cm) - Length 13 -Current Size (cm) - Width 15.5 -Current Size (cm) - Depth 0.1 -Total Square Cm 201.5 -Photo Taken No -Epithelialization None Present -Tunneling No -Undermining/Tunneling No -Exudate Amt Large (67-100%) -Exudate Type Serous -Wound Margin Distinct, Outline Attached -Granulation Amt Small (1-33%) -Granulation Quality Red -Slough/Fibrin Yes -Necrosis Amt Large (67-100%) -Necrotic Tissue Type Adherent Slough -Structure Exposed N/A -Texture (Erika-wound Skin Appearance) Excoriation Scarring -Moisture (Erika-wound Skin Appearance Maceration ) Weeping -Color (Erika-wound Skin Appearance) Erythema Hemosiderin Staining Palor -Temperature (Erika-wound Skin No Abnormality Appearance) (Pt Warm) -Tenderness on Palpation (Erika-wound Yes Skin Appearance) -Foul Odor after Cleansing No 1. L medial jenkins -Combined with other wound No -Current Size (cm) - Length 2.5 -Current Size (cm) - Width 1.7 -Current Size (cm) - Depth 0.3 -Total Square Cm 4.25 -Photo Taken No -Epithelialization None Present -Tunneling No -Undermining/Tunneling No -Exudate Amt Large (67-100%) -Exudate Type Serous -Wound Margin Distinct, Outline Attached -Granulation Amt None Present (0 %) -Slough/Fibrin Yes -Necrosis Amt Large (67-100%) -Necrotic Tissue Type Adherent Slough -Structure Exposed N/A -Texture (Erika-wound Skin Appearance) Excoriation Scarring -Moisture (Erika-wound Skin Appearance Maceration ) Weeping -Color (Erika-wound Skin Appearance) Erythema Hemosiderin Staining Pal[place] -Temperature (Erika-wound Skin No Abnormality Appearance) (Pt Warm) -Tenderness on Palpation (Erika-wound Yes Skin Appearance) -Ulcer Cleansing Wound Cleanser -Foul Odor after Cleansing No -Anesthetic Used 4% Lidocaine Solution [Edema Assessment] -Lower Limb Edema Present Yes -Right Calf (cm) 42.5 -Right Ankle (cm) 23.5 -Left Calf (cm) 46 -Left Ankle (cm) 24.7 WC - Nurse 2 - General Ulcer CM Notes Start: 01/23/17 00:44 Freq: Status: Active Protocol: Activity Type Activity Date Activity User E-Sign Co-Sign Detail Recorded Client Recorded Date Recorded By Document 01/23/17 15:21 MW [id number] 12/05/17 15:32 MW 01/23/17 15:21 Wound Center Nurse 2 [Procedure/Treatment] #4- LT CALF CLUSTER -Time 15:22 -Correct Patient Yes -Correct Side, Site, Position Yes -Correct Procedure Yes -Procedure Performed No -Post Debridement Size (cm) - Length 13.0 -Post Debridement Size (cm) - Width 15.5 -Post Debridement Size (cm) - Depth 0.1 -Total Square Cm 201.50 -Wound/Ulcer Outcome Not Healed -Ulcer Cleansing Rinsed/ Irrigated with Saline -Foul Odor after Cleansing Yes -Bioengineered Tissue No -Cetacaine [place] No -Bleeding Controlled with NA -Treatment Response Procedure Tolerated Well 1. L medial jenkins -Time 15:28 -Correct Patient Yes -Correct Side, Site, Position Yes -Correct Procedure Yes -Procedure Performed Yes -Type of Procedure Debridement -Clinical Debridement Subcutaneous -Post Debridement Size (cm) - Length 2.4 -Post Debridement Size (cm) - Width 1.7 -Post Debridement Size (cm) - Depth 0.3 -Total Square Cm 4.08 -Wound/Ulcer Outcome Not Healed -Ulcer Cleansing Rinsed/ Irrigated with Saline -Foul Odor after Cleansing No -Bioengineered Tissue No -Cetacaine [place] No -Bleeding Controlled with Pressure -Treatment Response Procedure Tolerated Well [See Physician Procedure note for Specifics] Pain Scale: 0-10 Numeric [Pain] -Is Patient Pain Free? Yes Debridement Note Post-Debridement Measurements/Treatment WC - Nurse 2 - General Ulcer CM Notes Start: 01/23/17 00:44 Freq: Status: Active Protocol: Activity Type Activity Date Activity User E-Sign Co-Sign Detail Recorded Client Recorded Date Recorded By Document 01/23/17 15:21 MW [id number] 01/23/17 15:32 MW 01/23/17 15:21 Wound Center Nurse 2 #4- LT CALF CLUSTER -Time 15:22 -Correct Patient Yes -Correct Side, Site, Position Yes -Correct Procedure Yes -Procedure Performed No -Post Debridement Size (cm) - Length 13.0 -Post Debridement Size (cm) - Width 15.5 -Post Debridement Size (cm) - Depth 0.1 -Total Square Cm 201.50 -Wound/Ulcer Outcome Not Healed -Ulcer Cleansing Rinsed/ Irrigated with Saline -Foul Odor after Cleansing Yes -Bioengineered Tissue No -Cetacaine [place] No -Bleeding Controlled with NA -Treatment Response Procedure Tolerated Well 1. L medial jenkins -Time 15:28 -Correct Patient Yes -Correct Side, Site, Position Yes -Correct Procedure Yes -Procedure Performed Yes -Type of Procedure Debridement -Clinical Debridement Subcutaneous -Post Debridement Size (cm) - Length 2.4 -Post Debridement Size (cm) - Width 1.7 -Post Debridement Size (cm) - Depth 0.3 -Total Square Cm 4.08 -Wound/Ulcer Outcome Not Healed -Ulcer Cleansing Rinsed/ Irrigated with Saline -Foul Odor after Cleansing No -Bioengineered Tissue No -Cetacaine [place] No -Bleeding Controlled with Pressure -Treatment Response Procedure Tolerated Well Pain Scale: 0-10 Numeric Is Patient Pain Free? Yes Wound debrided: L jenkins Laterality: Left Wound Grade/Stage: full thickness Type of Debridement: Excisional debridement Anesthesia Used: 4% Lidocaine Solution Depth: Down to and including healthy tissue, in the subcutaneous layer Percentage of wound debrided: 100 Instrument Used: 3mm curette Tissue Removed: fibrous slough Severity: Fat Layer Exposed Amount of bleeding with debridement: Mild Bleeding Controlled with: Pressure, Compression and gauze Patient tolerated procedure well Assessment/Plan Active Problems Lymphedema (Acute) Ulcer of leg, chronic, left (Chronic) Non-pressure chronic ulcer of other part of left lower leg with fat layer exposed (Acute) Type 2 diabetes mellitus with diabetic peripheral angiopathy without gangrene (Acute) Assessment: see diagnoses Plan: SQ/excisional debridment L leg ulcer as above. Referral to Dr. Granda given lymphedema with dimished arterial blood flow. Pt did see him last week, he is planning on additional testing. He also recommended lymphedema pumps, so we will get the process started with this. Also refer to lymphedema clinic. Switch to [employer] ag. Switch from ABDs to sorbian sachet for increased drainage. Patient to elevate legs as much as possible above her heart, avoid idle sitting or standing, increase activity, lose weight, and take anti-inflammatories for pain. Pt states she can only take aspirin. Patient has severe degenerative arthritis and has inability to bend her knees. Patient cannot reach down to her legs. Recheck back in 1 week. Monitor for redness, pus, malodor, warmth, pain, increased edema as well as for N/V/F/C and call or go to the ED with these. Information entered by nursing staff reviewed.
--- NOTE | 2017-01-23 16:09 | PN.PCM_ITS ---
(1) Non-pressure chronic ulcer of other part of left lower leg with fat layer exposed Status: Acute Current Visit: Yes Code(s): L97.822 - Non-pressure chronic ulcer of other part of left lower leg with fat layer exposed (2) Lymphedema Status: Acute Current Visit: Yes Code(s): I89.0 - Lymphedema, not elsewhere classified (3) Type 2 diabetes mellitus with other circulatory complications Status: Acute Current Visit: No Code(s): E11.59 - Type 2 diabetes mellitus with other circulatory complications (4) Type 2 diabetes mellitus with diabetic peripheral angiopathy without gangrene Status: Acute Current Visit: Yes Code(s): E11.51 - Type 2 diabetes mellitus with diabetic peripheral angiopathy without gangrene Type of Wound Date of Service: 01/23/17 Chief Complaint: open sore left leg History of Wound: This 81-year-old female presents to the wound center given a history of previous ulcers of her lower extremities. She is a former patient of Dr. Conway's, and I am seeing her now since he left the wound center. 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 Vein harvesting was from the left leg. Since then she has had problems with swelling of the leg and recurring ulcers. The patient has diabetes, coronary artery disease, peripheral arterial disease, and venous insufficiency. The patient has had venous ulcers previously that were treated compression. The patient has compression stockings that are difficult for her to wear. She lives alone and she is unable to put them on easily. A blister on her anterior tibial region ruptured and she has had continued drainage from the anterior tibial ulcer. She has been having aquacel ag and loosely wrapped 3M 2-layer coban applied. Patient states her leg is stable. Has not had venous studies in over 3 years and has not had arterial studies in over 2 years. Has not seen a vascular surgeon. She does not give a history of fevers or chills, myalgias or arthralgias. She does not remember her A1c. She gives herself 3 injections of insulin daily. 01/02--Did not tolerate unna boot-- caused itching, switched back to 3M coban wrap loosely wrapped. ALEXIA done--0.73 on the L. Pt has lymphedema. Venous duplex reveals no reflux--but has had vein harvested for bypass surgery in the past. Denies N/V/F/C. 01/16--Pt complains of L calf pain today. Has appt to see Dr. Granda tomorrow. Will send her to get venous duplex given edema, pain L leg. Has had fibracol plus applied every other day to the L leg wounds. Has superficial areas draining clear fluid from L calf. 01/23--L leg venous duplex (stat) negative for DVT last week. Pt saw Dr. Granda, plan for additional testing in 2 weeks, then likely angiogram. Dr. Granda recommended considering edema pumps as well. Pt complains of L leg pain from wounds. Will switch from ABDs to Sorbian Sachet for absorption of a large amount of drainage. In addition, will stop fibracol plus and switch to aquacel ag today. Progress of Wound: patient presents for a recheck of her left leg. Compression is with loosely-wrapped 3M 2-layer coban. She had no adverse effects except significant amount of clear drainage. Visiting nurses have now been coming to her home on a every other day to change dressings and compression. - Physical Exam Vital Signs Temp Pulse Resp BP 98.6 F 98 16 146/76 H 01/23/17 14:22 01/23/17 14:22 01/23/17 14:22 01/23/17 14:22 General: Alert, Oriented x3, Cooperative, No apparent distress Extremities: Edema Skin: Ulcer/ Wound - L calf, L jenkins with no erythema, no pus, no malodor, no increased warmth, no TTP. No clinical signs of acute bacterial infection noted. Please see nurse's wound assessment. Wound Measurements and Assessment SREE - Nurse 1 - General Ulcer Measurement Start: 01/23/17 00:44 Freq: Status: Active Protocol: Activity Type Activity Date Activity User E-Sign Co-Sign Detail Recorded Client Recorded Date Recorded By Document 01/23/17 14:22 [facility] [id number] 01/23/17 14:33 [facility] 01/23/17 14:22 Wound Center Nurse 1 [Ulcer Assessment Protocol: WC.WD.LOC] #4- LT CALF CLUSTER -Combined with other wound No -Current Size (cm) - Length 13 -Current Size (cm) - Width 15.5 -Current Size (cm) - Depth 0.1 -Total Square Cm 201.5 -Photo Taken No -Epithelialization None Present -Tunneling No -Undermining/Tunneling No -Exudate Amt Large (67-100%) -Exudate Type Serous -Wound Margin Distinct, Outline Attached -Granulation Amt Small (1-33%) -Granulation Quality Red -Slough/Fibrin Yes -Necrosis Amt Large (67-100%) -Necrotic Tissue Type Adherent Slough -Structure Exposed N/A -Texture (Erika-wound Skin Appearance) Excoriation Scarring -Moisture (Erika-wound Skin Appearance Maceration ) Weeping -Color (Erika-wound Skin Appearance) Erythema Hemosiderin Staining Palor -Temperature (Erika-wound Skin No Abnormality Appearance) (Pt Warm) -Tenderness on Palpation (Erika-wound Yes Skin Appearance) -Foul Odor after Cleansing No 1. L medial jenkins -Combined with other wound No -Current Size (cm) - Length 2.5 -Current Size (cm) - Width 1.7 -Current Size (cm) - Depth 0.3 -Total Square Cm 4.25 -Photo Taken No -Epithelialization None Present -Tunneling No -Undermining/Tunneling No -Exudate Amt Large (67-100%) -Exudate Type Serous -Wound Margin Distinct, Outline Attached -Granulation Amt None Present (0 %) -Slough/Fibrin Yes -Necrosis Amt Large (67-100%) -Necrotic Tissue Type Adherent Slough -Structure Exposed N/A -Texture (Erika-wound Skin Appearance) Excoriation Scarring -Moisture (Erika-wound Skin Appearance Maceration ) Weeping -Color (Erika-wound Skin Appearance) Erythema Hemosiderin Staining [place] -Temperature (Erika-wound Skin No Abnormality Appearance) (Pt Warm) -Tenderness on Palpation (Erika-wound Yes Skin Appearance) -Ulcer Cleansing Wound Cleanser -Foul Odor after Cleansing No -Anesthetic Used 4% Lidocaine Solution [Edema Assessment] -Lower Limb Edema Present Yes -Right Calf (cm) 42.5 -Right Ankle (cm) 23.5 -Left Calf (cm) 46 -Left Ankle (cm) 24.7 WC - Nurse 2 - General Ulcer CM Notes Start: 01/23/17 00:44 Freq: Status: Active Protocol: Activity Type Activity Date Activity User E-Sign Co-Sign Detail Recorded Client Recorded Date Recorded By Document 01/23/17 15:21 MW [id number] 12/05/17 15:32 MW 01/23/17 15:21 Wound Center Nurse 2 [Procedure/Treatment] #4- LT CALF CLUSTER -Time 15:22 -Correct Patient Yes -Correct Side, Site, Position Yes -Correct Procedure Yes -Procedure Performed No -Post Debridement Size (cm) - Length 13.0 -Post Debridement Size (cm) - Width 15.5 -Post Debridement Size (cm) - Depth 0.1 -Total Square Cm 201.50 -Wound/Ulcer Outcome Not Healed -Ulcer Cleansing Rinsed/ Irrigated with Saline -Foul Odor after Cleansing Yes -Bioengineered Tissue No -Cetacaine [place] No -Bleeding Controlled with NA -Treatment Response Procedure Tolerated Well 1. L medial jenkins -Time 15:28 -Correct Patient Yes -Correct Side, Site, Position Yes -Correct Procedure Yes -Procedure Performed Yes -Type of Procedure Debridement -Clinical Debridement Subcutaneous -Post Debridement Size (cm) - Length 2.4 -Post Debridement Size (cm) - Width 1.7 -Post Debridement Size (cm) - Depth 0.3 -Total Square Cm 4.08 -Wound/Ulcer Outcome Not Healed -Ulcer Cleansing Rinsed/ Irrigated with Saline -Foul Odor after Cleansing No -Bioengineered Tissue No -Cetacaine [place] No -Bleeding Controlled with Pressure -Treatment Response Procedure Tolerated Well [See Physician Procedure note for Specifics] Pain Scale: 0-10 Numeric [Pain] -Is Patient Pain Free? Yes Debridement Note Post-Debridement Measurements/Treatment WC - Nurse 2 - General Ulcer CM Notes Start: 01/23/17 00:44 Freq: Status: Active Protocol: Activity Type Activity Date Activity User E-Sign Co-Sign Detail Recorded Client Recorded Date Recorded By Document 01/23/17 15:21 MW [id number] 01/23/17 15:32 MW 01/23/17 15:21 Wound Center Nurse 2 #4- LT CALF CLUSTER -Time 15:22 -Correct Patient Yes -Correct Side, Site, Position Yes -Correct Procedure Yes -Procedure Performed No -Post Debridement Size (cm) - Length 13.0 -Post Debridement Size (cm) - Width 15.5 -Post Debridement Size (cm) - Depth 0.1 -Total Square Cm 201.50 -Wound/Ulcer Outcome Not Healed -Ulcer Cleansing Rinsed/ Irrigated with Saline -Foul Odor after Cleansing Yes -Bioengineered Tissue No -Cetacaine [place] No -Bleeding Controlled with NA -Treatment Response Procedure Tolerated Well 1. L medial jenkins -Time 15:28 -Correct Patient Yes -Correct Side, Site, Position Yes -Correct Procedure Yes -Procedure Performed Yes -Type of Procedure Debridement -Clinical Debridement Subcutaneous -Post Debridement Size (cm) - Length 2.4 -Post Debridement Size (cm) - Width 1.7 -Post Debridement Size (cm) - Depth 0.3 -Total Square Cm 4.08 -Wound/Ulcer Outcome Not Healed -Ulcer Cleansing Rinsed/ Irrigated with Saline -Foul Odor after Cleansing No -Bioengineered Tissue No -Cetacaine [place] No -Bleeding Controlled with Pressure -Treatment Response Procedure Tolerated Well Pain Scale: 0-10 Numeric Is Patient Pain Free? Yes Wound debrided: L jenkins Laterality: Left Wound Grade/Stage: full thickness Type of Debridement: Excisional debridement Anesthesia Used: 4% Lidocaine Solution Depth: Down to and including healthy tissue, in the subcutaneous layer Percentage of wound debrided: 100 Instrument Used: 3mm curette Tissue Removed: fibrous slough Severity: Fat Layer Exposed Amount of bleeding with debridement: Mild Bleeding Controlled with: Pressure, Compression and gauze Patient tolerated procedure well Assessment/Plan Active Problems Lymphedema (Acute) Ulcer of leg, chronic, left (Chronic) Non-pressure chronic ulcer of other part of left lower leg with fat layer exposed (Acute) Type 2 diabetes mellitus with diabetic peripheral angiopathy without gangrene ( Acute) Assessment: see diagnoses Plan: SQ/excisional debridment L leg ulcer as above. Referral to Dr. Granda given lymphedema with dimished arterial blood flow. Pt did see him last week, he is planning on additional testing. He also recommended lymphedema pumps, so we will get the process started with this. Also refer to lymphedema clinic. Switch to [facility] ag. Switch from ABDs to sorbian sachet for increased drainage. Patient to elevate legs as much as possible above her heart, avoid idle sitting or standing, increase activity, lose weight, and take anti- inflammatories for pain. Pt states she can only take aspirin. Patient has severe degenerative arthritis and has inability to bend her knees. Patient cannot reach down to her legs. Recheck back in 1 week. Monitor for redness, pus, malodor, warmth, pain, increased edema as well as for N/V/F/C and call or go to the ED with these. Information entered by nursing staff reviewed.
[2017-01-30 14:53] VITALS: BP 149/75; PULSE 85; RESP 18; TEMP 36.6
--- NOTE | 2017-01-30 15:56 | PCM.WC.PN ---
(1) Non-pressure chronic ulcer of other part of left lower leg with fat layer exposed Status: Acute Current Visit: Yes Code(s): L97.822 - Non-pressure chronic ulcer of other part of left lower leg with fat layer exposed (2) Lymphedema Status: Acute Current Visit: Yes Code(s): I89.0 - Lymphedema, not elsewhere classified (3) Type 2 diabetes mellitus with other circulatory complications Status: Acute Current Visit: No Code(s): E11.59 - Type 2 diabetes mellitus with other circulatory complications (4) Type 2 diabetes mellitus with diabetic peripheral angiopathy without gangrene Status: Acute Current Visit: Yes Code(s): E11.51 - Type 2 diabetes mellitus with diabetic peripheral angiopathy without gangrene Type of Wound Date of Service: 01/30/17 Chief Complaint: open sore left leg History of Wound: This 81-year-old female presents to the wound center given a history of previous ulcers of her lower extremities. She is a former patient of Dr. Conway's, and I am seeing her now since he left the wound center. 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 Vein harvesting was from the left leg. Since then she has had problems with swelling of the leg and recurring ulcers. The patient has diabetes, coronary artery disease, peripheral arterial disease, and venous insufficiency. The patient has had venous ulcers previously that were treated compression. The patient has compression stockings that are difficult for her to wear. She lives alone and she is unable to put them on easily. A blister on her anterior tibial region ruptured and she has had continued drainage from the anterior tibial ulcer. She has been having aquacel ag and loosely wrapped 3M 2-layer coban applied. Patient states her leg is stable. Has not had venous studies in over 3 years and has not had arterial studies in over 2 years. Has not seen a vascular surgeon. She does not give a history of fevers or chills, myalgias or arthralgias. She does not remember her A1c. She gives herself 3 injections of insulin daily. 01/02--Did not tolerate unna boot--caused itching, switched back to 3M coban wrap loosely wrapped. ALEXIA done--0.73 on the L. Pt has lymphedema. Venous duplex reveals no reflux--but has had vein harvested for bypass surgery in the past. Denies N/V/F/C. 01/16--Pt complains of L calf pain today. Has appt to see Dr. Granda tomorrow. Will send her to get venous duplex given edema, pain L leg. Has had fibracol plus applied every other day to the L leg wounds. Has superficial areas draining clear fluid from L calf. 01/23--L leg venous duplex (stat) negative for DVT last week. Pt saw Dr. Granda, plan for additional testing in 2 weeks, then likely angiogram. Dr. Granda recommended considering edema pumps as well. Pt complains of L leg pain from wounds. Will switch from ABDs to Sorbian Sachet for absorption of a large amount of drainage. In addition, will stop fibracol plus and switch to aquacel ag today. 01/30--Pt was sent to the ED on by [facility] for cellulitis of her LLE. She was given a dose of IV clindamycin and prescribed clindamycin by mouth which she has been taking. She notes NO improvement and has failed outpatient PO antibiotics. Denies N/V/F/C. Progress of Wound: patient presents for a recheck of her left leg. Compression is with loosely-wrapped 3M 2-layer coban. She now has erythema, pain, warmth of her left leg. She went to the ED last for the same, was discharged on PO clindamycin. She notes no improvement, and in fact notes worsening of the redness and warmth to her left leg and states it is tracking above her knee. - Physical Exam Vital Signs Temp Pulse Resp BP 97.9 F 85 18 149/75 H 01/30/17 14:53 01/30/17 14:53 01/30/17 14:53 01/30/17 14:53 General: Alert, Oriented x3, Cooperative, No apparent distress Skin: Ulcer/ Wound - L leg ulcers with surrounding TTP, erythema, calor, edema of the leg. The erythema tracks proximally to above the knee. There is likley cellulitis of the left lower extremity. Wound Measurements and Assessment WC - Nurse 1 - General Ulcer Measurement Start: 01/23/17 00:44 Freq: Status: Active Protocol: Activity Type Activity Date Activity User E-Sign Co-Sign Detail Recorded Client Recorded Date Recorded By Document 01/30/17 14:53 DL [id number] 01/30/17 15:07 DL 01/30/17 14:53 Wound Center Nurse 1 [Ulcer Assessment Protocol: WC.WD.LOC] #5 L Lat LE -Current Size (cm) - Length 2.2 -Current Size (cm) - Width 2.2 -Current Size (cm) - Depth 0.1 -Total Square Cm 4.84 -Photo Taken Yes -Exudate Amt Large (67-100%) -Exudate Type Serosanguineous -Wound Margin Flat & Intact -Granulation Amt Small (1-33%) -Granulation Quality [place] -Necrosis Amt Large (67-100%) -Necrotic Tissue Type Adherent Slough -Texture (Erika-wound Skin Appearance) Scarring -Moisture (Erika-wound Skin Appearance Maceration ) -Color (Erika-wound Skin Appearance) Hemosiderin Staining -Temperature (Erika-wound Skin No Abnormality Appearance) (Pt Warm) -Ulcer Cleansing Wound Cleanser -Foul Odor after Cleansing No -Anesthetic Used 4% Lidocaine Solution #4- LT CALF CLUSTER -Current Size (cm) - Length 10 -Current Size (cm) - Width 18 -Current Size (cm) - Depth 0.2 -Total Square Cm 180 -Photo Taken No -Exudate Amt Large (67-100%) -Exudate Type Yellow/Green -Wound Margin Distinct, Outline Attached -Granulation Amt Small (1-33%) -Granulation Quality [place] -Necrosis Amt Large (67-100%) -Necrotic Tissue Type Adherent Slough -Structure Exposed N/A -Texture (Erika-wound Skin Appearance) Localized Edema Scarring -Moisture (Erika-wound Skin Appearance Maceration ) -Color (Erika-wound Skin Appearance) Erythema -Temperature (Erika-wound Skin Hot Appearance) -Ulcer Cleansing Wound Cleanser -Foul Odor after Cleansing No -Anesthetic Used 4% Lidocaine Solution 1. L medial jenkins -Current Size (cm) - Length 2.8 -Current Size (cm) - Width 1.8 -Current Size (cm) - Depth 0.3 -Total Square Cm 5.04 -Photo Taken No -Exudate Amt Large (67-100%) -Exudate Type Yellow/Green -Wound Margin Distinct, Outline Attached -Granulation Amt None Present (0 %) -Necrosis Amt Large (67-100%) -Necrotic Tissue Type Adherent Slough -Structure Exposed N/A -Texture (Erika-wound Skin Appearance) Localized Edema -Moisture (Erika-wound Skin Appearance Maceration ) -Color (Erika-wound Skin Appearance) Erythema -Temperature (Erika-wound Skin Hot Appearance) -Ulcer Cleansing Wound Cleanser -Foul Odor after Cleansing No -Anesthetic Used 4% Lidocaine Solution [Edema Assessment] -Left Calf (cm) 50 -Left Ankle (cm) 24.7 WC - Nurse 2 - General Ulcer CM Notes Start: 01/23/17 00:44 Freq: Status: Active Protocol: Activity Type Activity Date Activity User E-Sign Co-Sign Detail Recorded Client Recorded Date Recorded By Document 01/30/17 15:44 MW [id number] 01/30/17 15:53 MW 01/30/17 15:44 Wound Center Nurse 2 [Procedure/Treatment] #5 L Lat LE -Time 15:45 -Correct Patient Yes -Correct Side, Site, Position Yes -Correct Procedure Yes -Procedure Performed No -Post Debridement Size (cm) - Length 2.2 -Post Debridement Size (cm) - Width 2.2 -Post Debridement Size (cm) - Depth 0.1 -Total Square Cm 4.84 -Wound/Ulcer Outcome Not Healed -Ulcer Cleansing Rinsed/ Irrigated with Saline -Foul Odor after Cleansing No -Bioengineered Tissue No -Cetacaine [place] No -Bleeding Controlled with NA -Treatment Response Procedure Tolerated Well #4- LT CALF CLUSTER -Time 15:45 -Correct Patient Yes -Correct Side, Site, Position Yes -Correct Procedure Yes -Procedure Performed No -Post Debridement Size (cm) - Length 10.0 -Post Debridement Size (cm) - Width 18.0 -Post Debridement Size (cm) - Depth 0.2 -Total Square Cm 180.00 -Wound/Ulcer Outcome Not Healed -Ulcer Cleansing Rinsed/ Irrigated with Saline -Foul Odor after Cleansing No -Bioengineered Tissue No -Cetacaine [place] No -Bleeding Controlled with NA -Treatment Response Procedure Tolerated Well 1. L medial jenkins -Time 15:46 -Correct Patient Yes -Correct Side, Site, Position Yes -Correct Procedure Yes -Procedure Performed No -Post Debridement Size (cm) - Length 2.8 -Post Debridement Size (cm) - Width 1.8 -Post Debridement Size (cm) - Depth 0.3 -Total Square Cm 5.04 -Wound/Ulcer Outcome Not Healed -Ulcer Cleansing Rinsed/ Irrigated with Saline -Foul Odor after Cleansing No -Bioengineered Tissue No -Cetacaine [place] No -Bleeding Controlled with NA -Treatment Response Procedure Tolerated Well [See Physician Procedure note for Specifics] Pain Scale: 0-10 Numeric [Pain] -Is Patient Pain Free? Yes Debridement Note Post-Debridement Measurements/Treatment WC - Nurse 2 - General Ulcer CM Notes Start: 01/23/17 00:44 Freq: Status: Active Protocol: Activity Type Activity Date Activity User E-Sign Co-Sign Detail Recorded Client Recorded Date Recorded By Document 01/23/17 15:21 MW [id number] 01/23/17 15:32 MW Document 01/30/17 15:44 MW [id number] 01/30/17 15:53 MW 01/23/17 01/30/17 15:21 15:44 Wound Center Nurse 2 #5 L Lat LE -Time 15:45 -Correct Patient Yes -Correct Side, Site, Position Yes -Correct Procedure Yes -Procedure Performed No -Post Debridement Size (cm) - Length 2.2 -Post Debridement Size (cm) - Width 2.2 -Post Debridement Size (cm) - Depth 0.1 -Total Square Cm 4.84 -Wound/Ulcer Outcome Not Healed -Ulcer Cleansing Rinsed/ Irrigated with Saline -Foul Odor after Cleansing No -Bioengineered Tissue No -Cetacaine [place] No -Bleeding Controlled with NA -Treatment Response Procedure Tolerated Well #4- LT CALF CLUSTER -Time 15:22 15:45 -Correct Patient Yes Yes -Correct Side, Site, Position Yes Yes -Correct Procedure Yes Yes -Procedure Performed No No -Post Debridement Size (cm) - Length 13.0 10.0 -Post Debridement Size (cm) - Width 15.5 18.0 -Post Debridement Size (cm) - Depth 0.1 0.2 -Total Square Cm 201.50 180.00 -Wound/Ulcer Outcome Not Healed Not Healed -Ulcer Cleansing Rinsed/ Rinsed/ Irrigated with Irrigated with Saline Saline -Foul Odor after Cleansing Yes No -Bioengineered Tissue No No -Cetacaine [place] No No -Bleeding Controlled with NA NA -Treatment Response Procedure Procedure Tolerated Well Tolerated Well 1. L medial jenkins -Time 15:28 15:46 -Correct Patient Yes Yes -Correct Side, Site, Position Yes Yes -Correct Procedure Yes Yes -Procedure Performed Yes No -Type of Procedure Debridement -Clinical Debridement Subcutaneous -Post Debridement Size (cm) - Length 2.4 2.8 -Post Debridement Size (cm) - Width 1.7 1.8 -Post Debridement Size (cm) - Depth 0.3 0.3 -Total Square Cm 4.08 5.04 -Wound/Ulcer Outcome Not Healed Not Healed -Ulcer Cleansing Rinsed/ Rinsed/ Irrigated with Irrigated with Saline Saline -Foul Odor after Cleansing No No -Bioengineered Tissue No No -Cetacaine [place] No No -Bleeding Controlled with Pressure NA -Treatment Response Procedure Procedure Tolerated Well Tolerated Well Pain Scale: 0-10 Numeric Is Patient Pain Free? Yes Yes No debridement was completed today Assessment/Plan Active Problems Lymphedema (Acute) Ulcer of leg, chronic, left (Chronic) Non-pressure chronic ulcer of other part of left lower leg with fat layer exposed (Acute) Type 2 diabetes mellitus with diabetic peripheral angiopathy without gangrene (Acute) Assessment: see diagnoses Plan: Exam. A total of 25 minutes was spent [id number] with the patient, and over half of that time was spent on counseling, coordination of care, and discussing her diagnoses. Referral to Dr. Granda given lymphedema with dimished arterial blood flow. Pt did see him 2 weeks ago, he is planning on additional testing. He also recommended lymphedema pumps, so we will get the process started with this. Also refer to lymphedema clinic. Patient to elevate legs as much as possible above her heart, avoid idle sitting or standing, increase activity, lose weight, and take anti-inflammatories for pain. Pt states she can only take aspirin. Patient has severe degenerative arthritis and has inability to bend her knees. Patient cannot reach down to her legs. Recheck back in 1 week. Monitor for redness, pus, malodor, warmth, pain, increased edema as well as for N/V/F/C and call or go to the ED with these. Information entered by nursing staff reviewed. Pt has worsening cellulitis of her left lower extremities despite taking PO antibiotics since last . She has failed outpatient PO antibiotics, and I believe she should be admitted with a consultation to Infectious Diseases. In addition, she does have outpatient vascular testing scheduled for this . Dr. Granda should be consulted during this admission, and hopefully these tests can be rescheduled as inpatient tests.
--- NOTE | 2017-01-30 16:03 | PN.PCM_ITS ---
(1) Non-pressure chronic ulcer of other part of left lower leg with fat layer exposed Status: Acute Current Visit: Yes Code(s): L97.822 - Non-pressure chronic ulcer of other part of left lower leg with fat layer exposed (2) Lymphedema Status: Acute Current Visit: Yes Code(s): I89.0 - Lymphedema, not elsewhere classified (3) Type 2 diabetes mellitus with other circulatory complications Status: Acute Current Visit: No Code(s): E11.59 - Type 2 diabetes mellitus with other circulatory complications (4) Type 2 diabetes mellitus with diabetic peripheral angiopathy without gangrene Status: Acute Current Visit: Yes Code(s): E11.51 - Type 2 diabetes mellitus with diabetic peripheral angiopathy without gangrene Type of Wound Date of Service: 01/30/17 Chief Complaint: open sore left leg History of Wound: This 81-year-old female presents to the wound center given a history of previous ulcers of her lower extremities. She is a former patient of Dr. Conway's, and I am seeing her now since he left the wound center. 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 Vein harvesting was from the left leg. Since then she has had problems with swelling of the leg and recurring ulcers. The patient has diabetes, coronary artery disease, peripheral arterial disease, and venous insufficiency. The patient has had venous ulcers previously that were treated compression. The patient has compression stockings that are difficult for her to wear. She lives alone and she is unable to put them on easily. A blister on her anterior tibial region ruptured and she has had continued drainage from the anterior tibial ulcer. She has been having aquacel ag and loosely wrapped 3M 2-layer coban applied. Patient states her leg is stable. Has not had venous studies in over 3 years and has not had arterial studies in over 2 years. Has not seen a vascular surgeon. She does not give a history of fevers or chills, myalgias or arthralgias. She does not remember her A1c. She gives herself 3 injections of insulin daily. 01/02--Did not tolerate unna boot-- caused itching, switched back to 3M coban wrap loosely wrapped. ALEXIA done--0.73 on the L. Pt has lymphedema. Venous duplex reveals no reflux--but has had vein harvested for bypass surgery in the past. Denies N/V/F/C. 01/16--Pt complains of L calf pain today. Has appt to see Dr. Granda tomorrow. Will send her to get venous duplex given edema, pain L leg. Has had fibracol plus applied every other day to the L leg wounds. Has superficial areas draining clear fluid from L calf. 01/23--L leg venous duplex (stat) negative for DVT last week. Pt saw Dr. Granda, plan for additional testing in 2 weeks, then likely angiogram. Dr. Granda recommended considering edema pumps as well. Pt complains of L leg pain from wounds. Will switch from ABDs to Sorbian Sachet for absorption of a large amount of drainage. In addition, will stop fibracol plus and switch to aquacel ag today. 01/30--[facility] cellulitis of her LLE. She was given a dose of IV clindamycin and prescribed clindamycin by mouth which she has been taking. She notes NO improvement and has failed outpatient PO antibiotics. Denies N/V/F/C. Progress of Wound: patient presents for a recheck of her left leg. Compression is with loosely-wrapped 3M 2-layer coban. She now has erythema, pain, warmth of her left leg. She went to the ED last for the same, was discharged on PO clindamycin. She notes no improvement, and in fact notes worsening of the redness and warmth to her left leg and states it is tracking above her knee. - Physical Exam Vital Signs Temp Pulse Resp BP 97.9 F 85 18 149/75 H 01/30/17 14:53 01/30/17 14:53 01/30/17 14:53 01/30/17 14:53 General: Alert, Oriented x3, Cooperative, No apparent distress Skin: Ulcer/ Wound - L leg ulcers with surrounding TTP, erythema, calor, edema of the leg. The erythema tracks proximally to above the knee. There is likley cellulitis of the left lower extremity. Wound Measurements and Assessment WC - Nurse 1 - General Ulcer Measurement Start: 01/23/17 00:44 Freq: Status: Active Protocol: Activity Type Activity Date Activity User E-Sign Co-Sign Detail Recorded Client Recorded Date Recorded By Document 01/30/17 14:53 DL [id number] 01/30/17 15:07 DL 01/30/17 14:53 Wound Center Nurse 1 [Ulcer Assessment Protocol: WC.WD.LOC] #5 L Lat LE -Current Size (cm) - Length 2.2 -Current Size (cm) - Width 2.2 -Current Size (cm) - Depth 0.1 -Total Square Cm 4.84 -Photo Taken Yes -Exudate Amt Large (67-100%) -Exudate Type Serosanguineous -Wound Margin Flat & Intact -Granulation Amt Small (1-33%) -Granulation Quality [place] -Necrosis Amt Large (67-100%) -Necrotic Tissue Type Adherent Slough -Texture (Erika-wound Skin Appearance) Scarring -Moisture (Erika-wound Skin Appearance Maceration ) -Color (Erika-wound Skin Appearance) Hemosiderin Staining -Temperature (Erika-wound Skin No Abnormality Appearance) (Pt Warm) -Ulcer Cleansing Wound Cleanser -Foul Odor after Cleansing No -Anesthetic Used 4% Lidocaine Solution #4- LT CALF CLUSTER -Current Size (cm) - Length 10 -Current Size (cm) - Width 18 -Current Size (cm) - Depth 0.2 -Total Square Cm 180 -Photo Taken No -Exudate Amt Large (67-100%) -Exudate Type Yellow/Green -Wound Margin Distinct, Outline Attached -Granulation Amt Small (1-33%) -Granulation Quality [place] -Necrosis Amt Large (67-100%) -Necrotic Tissue Type Adherent Slough -Structure Exposed N/A -Texture (Erika-wound Skin Appearance) Localized Edema Scarring -Moisture (Erika-wound Skin Appearance Maceration ) -Color (Erika-wound Skin Appearance) Erythema -Temperature (Erika-wound Skin Hot Appearance) -Ulcer Cleansing Wound Cleanser -Foul Odor after Cleansing No -Anesthetic Used 4% Lidocaine Solution 1. L medial jenkins -Current Size (cm) - Length 2.8 -Current Size (cm) - Width 1.8 -Current Size (cm) - Depth 0.3 -Total Square Cm 5.04 -Photo Taken No -Exudate Amt Large (67-100%) -Exudate Type Yellow/Green -Wound Margin Distinct, Outline Attached -Granulation Amt None Present (0 %) -Necrosis Amt Large (67-100%) -Necrotic Tissue Type Adherent Slough -Structure Exposed N/A -Texture (Erika-wound Skin Appearance) Localized Edema -Moisture (Erika-wound Skin Appearance Maceration ) -Color (Erika-wound Skin Appearance) Erythema -Temperature (Erika-wound Skin Hot Appearance) -Ulcer Cleansing Wound Cleanser -Foul Odor after Cleansing No -Anesthetic Used 4% Lidocaine Solution [Edema Assessment] -Left Calf (cm) 50 -Left Ankle (cm) 24.7 WC - Nurse 2 - General Ulcer CM Notes Start: 01/23/17 00:44 Freq: Status: Active Protocol: Activity Type Activity Date Activity User E-Sign Co-Sign Detail Recorded Client Recorded Date Recorded By Document 01/30/17 15:44 MW [id number] 01/30/17 15:53 MW 01/30/17 15:44 Wound Center Nurse 2 [Procedure/Treatment] #5 L Lat LE -Time 15:45 -Correct Patient Yes -Correct Side, Site, Position Yes -Correct Procedure Yes -Procedure Performed No -Post Debridement Size (cm) - Length 2.2 -Post Debridement Size (cm) - Width 2.2 -Post Debridement Size (cm) - Depth 0.1 -Total Square Cm 4.84 -Wound/Ulcer Outcome Not Healed -Ulcer Cleansing Rinsed/ Irrigated with Saline -Foul Odor after Cleansing No -Bioengineered Tissue No -Cetacaine [place] No -Bleeding Controlled with NA -Treatment Response Procedure Tolerated Well #4- LT CALF CLUSTER -Time 15:45 -Correct Patient Yes -Correct Side, Site, Position Yes -Correct Procedure Yes -Procedure Performed No -Post Debridement Size (cm) - Length 10.0 -Post Debridement Size (cm) - Width 18.0 -Post Debridement Size (cm) - Depth 0.2 -Total Square Cm 180.00 -Wound/Ulcer Outcome Not Healed -Ulcer Cleansing Rinsed/ Irrigated with Saline -Foul Odor after Cleansing No -Bioengineered Tissue No -Cetacaine [place] No -Bleeding Controlled with NA -Treatment Response Procedure Tolerated Well 1. L medial jenkins -Time 15:46 -Correct Patient Yes -Correct Side, Site, Position Yes -Correct Procedure Yes -Procedure Performed No -Post Debridement Size (cm) - Length 2.8 -Post Debridement Size (cm) - Width 1.8 -Post Debridement Size (cm) - Depth 0.3 -Total Square Cm 5.04 -Wound/Ulcer Outcome Not Healed -Ulcer Cleansing Rinsed/ Irrigated with Saline -Foul Odor after Cleansing No -Bioengineered Tissue No -Cetacaine [place] No -Bleeding Controlled with NA -Treatment Response Procedure Tolerated Well [See Physician Procedure note for Specifics] Pain Scale: 0-10 Numeric [Pain] -Is Patient Pain Free? Yes Debridement Note Post-Debridement Measurements/Treatment WC - Nurse 2 - General Ulcer CM Notes Start: 01/23/17 00:44 Freq: Status: Active Protocol: Activity Type Activity Date Activity User E-Sign Co-Sign Detail Recorded Client Recorded Date Recorded By Document 01/23/17 15:21 MW [id number] 01/23/17 15:32 MW Document 01/30/17 15:44 MW [id number] 01/30/17 15:53 MW 01/23/17 01/30/17 15:21 15:44 Wound Center Nurse 2 #5 L Lat LE -Time 15:45 -Correct Patient Yes -Correct Side, Site, Position Yes -Correct Procedure Yes -Procedure Performed No -Post Debridement Size (cm) - Length 2.2 -Post Debridement Size (cm) - Width 2.2 -Post Debridement Size (cm) - Depth 0.1 -Total Square Cm 4.84 -Wound/Ulcer Outcome Not Healed -Ulcer Cleansing Rinsed/ Irrigated with Saline -Foul Odor after Cleansing No -Bioengineered Tissue No -Cetacaine [place] No -Bleeding Controlled with NA -Treatment Response Procedure Tolerated Well #4- LT CALF CLUSTER -Time 15:22 15:45 -Correct Patient Yes Yes -Correct Side, Site, Position Yes Yes -Correct Procedure Yes Yes -Procedure Performed No No -Post Debridement Size (cm) - Length 13.0 10.0 -Post Debridement Size (cm) - Width 15.5 18.0 -Post Debridement Size (cm) - Depth 0.1 0.2 -Total Square Cm 201.50 180.00 -Wound/Ulcer Outcome Not Healed Not Healed -Ulcer Cleansing Rinsed/ Rinsed/ Irrigated with Irrigated with Saline Saline -Foul Odor after Cleansing Yes No -Bioengineered Tissue No No -Cetacaine [place] No No -Bleeding Controlled with NA NA -Treatment Response Procedure Procedure Tolerated Well Tolerated Well 1. L medial jenkins -Time 15:28 15:46 -Correct Patient Yes Yes -Correct Side, Site, Position Yes Yes -Correct Procedure Yes Yes -Procedure Performed Yes No -Type of Procedure Debridement -Clinical Debridement Subcutaneous -Post Debridement Size (cm) - Length 2.4 2.8 -Post Debridement Size (cm) - Width 1.7 1.8 -Post Debridement Size (cm) - Depth 0.3 0.3 -Total Square Cm 4.08 5.04 -Wound/Ulcer Outcome Not Healed Not Healed -Ulcer Cleansing Rinsed/ Rinsed/ Irrigated with Irrigated with Saline Saline -Foul Odor after Cleansing No No -Bioengineered Tissue No No -Cetacaine [place] No No -Bleeding Controlled with Pressure NA -Treatment Response Procedure Procedure Tolerated Well Tolerated Well Pain Scale: 0-10 Numeric Is Patient Pain Free? Yes Yes No debridement was completed today Assessment/Plan Active Problems Lymphedema (Acute) Ulcer of leg, chronic, left (Chronic) Non-pressure chronic ulcer of other part of left lower leg with fat layer exposed (Acute) Type 2 diabetes mellitus with diabetic peripheral angiopathy without gangrene ( Acute) Assessment: see diagnoses Plan: Exam. A total of 25 minutes was spent [id number] with the patient, and over half of that time was spent on counseling, coordination of care, and discussing her diagnoses. Referral to Dr. Granda given lymphedema with dimished arterial blood flow. Pt did see him 2 weeks ago, he is planning on additional testing. He also recommended lymphedema pumps, so we will get the process started with this. Also refer to lymphedema clinic. Patient to elevate legs as much as possible above her heart, avoid idle sitting or standing, increase activity, lose weight, and take anti-inflammatories for pain. Pt states she can only take aspirin. Patient has severe degenerative arthritis and has inability to bend her knees. Patient cannot reach down to her legs. Recheck back in 1 week. Monitor for redness, pus, malodor, warmth, pain, increased edema as well as for N/V/F/C and call or go to the ED with these. Information entered by nursing staff reviewed. Pt has worsening cellulitis of her left lower extremities despite taking PO antibiotics since last . She has failed outpatient PO antibiotics, and I believe she should be admitted with a consultation to Infectious Diseases. In addition, she does have outpatient vascular testing scheduled for this . Dr. Granda should be consulted during this admission, and hopefully these tests can be rescheduled as inpatient tests.
== END 2017-02-18 23:59 ==
LOC: WC 15:00
PROVIDERS: Family Provider Family Medicine; PCP Family Medicine; Visit Provider Podiatrist Foot & Ankle Surgery
DX: E11.622 Type 2 diabetes mellitus with other skin ulcer (principal); L97.822 Non-pressure chronic ulcer of other part of left lower leg with fat layer exposed; I89.0 Lymphedema, not elsewhere classified; E11.51 Type 2 diabetes mellitus with diabetic peripheral angiopathy without gangrene; Z95.1 Presence of aortocoronary bypass graft; I25.10 Atherosclerotic heart disease of native coronary artery without angina pectoris; M19.90 Unspecified osteoarthritis, unspecified site; L03.116 Cellulitis of left lower limb
CPT/HCPCS: 11042; 29581; 97602; 99213; G0463